=== PATIENT | female | born 1945 | race Caucasian/White ===

== ENCOUNTER → 2021-08-15 11:26 | Outpatient (CLI) | payer MEDICARE, OTHER, SELFPAY ==
[2021-08-15 14:10] LABS: COVID19 -Nasal RAPID Negative (Negative)
== END ==
PROVIDERS: Visit Provider Nurse Practitioner Family
DX: Z20.822 Contact with and (suspected) exposure to COVID-19 (principal)
CPT/HCPCS: 87635; C9803

== ENCOUNTER → 2021-08-16 10:20 | Outpatient (CLI) | payer MEDICARE, OTHER, SELFPAY ==
--- NOTE | 2021-08-17 05:46 | DI.NM.S_ITS ---
DATE OF SERVICE: PROCEDURE: Pharmacological perfusion study. INDICATIONS: Angina pectoris, shortness of breath, hypertension, hyperlipidemia. RADIOPHARMACEUTICAL: 24.8 millicurie technetium-99m Myoview IV was injected at stress and 12.3 millicurie technetium-99m Myoview IV was injected at rest. CARDIAC STRESS: The patient underwent IV Lexiscan perfusion study under the supervision of an attending staff using standard intravenous Lexiscan as per protocol. The patient remained hemodynamically stable. Baseline rhythm was sinus with poor R-wave progression with sinus bradycardia, rate about 54 beats per minute. During stress, no convincing ischemic changes seen. No new significant arrhythmias seen. No anginal symptoms. RAW DATA: Breast shadow was seen. GATED STUDY: Resting LV ejection fraction is 75 percent and stress LV ejection fraction 88 percent. Resting end-diastolic volume 73 mL. TID ratio 1.0, which is within normal limits. Lung/heart ratio 0.25, which is within normal limits. MYOCARDIAL PERFUSION SCAN: Stress supine, resting supine and stress prone images were compared to each other. Stress supine and resting supine images revealed minimally decreased perfusion of distal anterior septum which got resolved during stress prone images, suggestive of breast tissue attenuation artifact. CONCLUSION: I will call this study a normal myocardial perfusion study with evidence of breast tissue attenuation artifact which got resolved during stress prone images. The stress prone images revealed normal myocardial perfusion. Preserved left ventricular function. No significant sustained arrhythmias. Overall, this is a low-risk myocardial perfusion scan. YARA BARROS - BRANDI/bob/eboni doc#: [id number]/job#: [id number] dd: 08/16/2021 17:42:00 dt: 08/17/2021 05:08:00 DICTATING MD/COPIES TO: Yi Maciel MD COPIES MNE: JOHN;
== END ==
PROVIDERS: Referring Provider Internal Medicine Cardiovascular Disease; Visit Provider Internal Medicine Cardiovascular Disease
DX: I20.8 Other forms of angina pectoris (principal); R06.00 Dyspnea, unspecified; I10 Essential (primary) hypertension; E78.5 Hyperlipidemia, unspecified
CPT/HCPCS: 78452; 93017; A9502; J2785

== ENCOUNTER 2022-05-31 22:55 | Inpatient (IN) | payer MEDICARE, OTHER, SELFPAY ==
[2022-05-31 22:58] VITALS: BP 187/82; PULSE 57; PULSE 58; RESP 16; TEMP 36.6; O2SAT 94; O2SAT 99; BMI 24.7
[2022-05-31 23:00] VITALS: PULSE 58; O2SAT 94
--- NOTE | 2022-05-31 23:00 | DI.RAD.S_ITS ---
PROCEDURE: XR SHOULDER LT MIN 2V INDICATIONS: fall TECHNIQUE: 2 views of the shoulder were acquired. COMPARISON: None. FINDINGS: Bones: There is a mildly comminuted fracture of the left humeral head and neck with mild impaction of the humeral shaft component. No suspicious bony lesions. Visualized ribs appear intact. Soft tissues: No suspicious soft tissue calcifications. IMPRESSION: 1. Mildly comminuted and impacted fracture of the left humeral head and neck. Dictated by: Enrike Blake M.D. on 05/31/2022 at 23:52 Approved by: Enrike Blake M.D. on 05/31/2022 at 23:53
--- NOTE | 2022-05-31 23:01 | DI.RAD.S_ITS ---
PROCEDURE: XR HIP W PEL IF DONE LT 2V INDICATIONS: fall, hip and shoulder pain TECHNIQUE: AP pelvis with lateral view of the left hip. COMPARISON: None. FINDINGS: Bones: There is a mildly displaced intertrochanteric fracture of the proximal left femur. There is associated mild proximal displacement and varus angulation. Pelvic ring appears intact. The physician screws are demonstrated traversing the right femoral neck. No suspicious bony lesions. Soft tissues: The visualized bowel gas pattern is normal. No suspicious soft tissue calcifications. IMPRESSION: 1. Mildly displaced intertrochanteric fracture of the proximal left femur. Dictated by: Enrike Blake M.D. on 05/31/2022 at 23:53 Approved by: Enrike Blake M.D. on 05/31/2022 at 23:54
[2022-05-31 23:30] VITALS: PULSE 59; O2SAT 95
[2022-06-01] VITALS (30 sets, daily range): BP systolic 106–172; BP diastolic 45–89; PULSE 60–86; RESP 12–25; TEMP 35.8–37.6; O2SAT 91–100; BMI 24.7
--- NOTE | 2022-06-01 00:07 | DI.RAD.S_ITS ---
PROCEDURE: XR CHEST 1V INDICATIONS: pre-op TECHNIQUE: One view of the chest was acquired. COMPARISON: [facility], CR, XR SHOULDER LT MIN 2V, 05/31/2022, 23:06. FINDINGS: Surgical changes and devices: None. Lungs and pleura: There is elevation of the left hemidiaphragm. Linear left basilar opacities likely represent atelectasis. Right lung is clear No pleural effusions or pneumothorax. Mediastinum: Mediastinal contours appear normal. Heart size is normal. Bones and chest wall: No suspicious bony lesions. Overlying soft tissues appear unremarkable. IMPRESSION: 1. No definite acute cardiopulmonary disease. 2. Linear left basilar opacities likely represent atelectasis. Dictated by: Enrike Blake M.D. on 06/01/2022 at 1:05 Approved by: Enrike Blake M.D. on 06/01/2022 at 1:06
[2022-06-01] MEDS: MORPHINE 2 MG/ML INJ IV (00:09)
[2022-06-01] MEDS: SODIUM CHLORIDE 0.9% 1,000 ML 150 ML IV (00:15)
--- NOTE | 2022-06-01 00:25 | ED.FALL ---
HPI - Fall General Chief Complaint: Fall Stated Complaint: GLF shoulder and hip pain Time Seen by Provider: 06/01/22 00:06 History of Present Illness HPI Narrative: 76-year-old woman with complex medical history including diabetes, hyperlipidemia, ischemic heart disease, history of seizures none reported in last 10 years, asthma, osteoarthritis, PTSD, depression, anxiety, borderline personality disorder who presents after a mechanical fall at home. Apparently she was with friends and family had just gotten home from [place] her Bible down twisted fell and landed on her left side. She is complaining of left arm pain left hip pain. She was unable to get up off the floor. On initial discussion in the ER she is now beginning to complain of abdominal pain, left flank left lower rib and left lower quadrant abdominal pain. She notes that she has not recently had fevers, cough, chills, chest pain, palpitations. She has been doing well with her chronic usual back pain and feels that she is psychiatrically stable at this time. Related Data Home Medications Medication Instructions Recorded Confirmed fluoxetine 20 mg capsule 2 cap PO DAILY 06/01/22 06/01/22 levetiracetam 500 mg tablet 2 tab PO BID 06/01/22 06/01/22 levothyroxine 50 mcg tablet 50 mcg PO DAILY 06/01/22 06/01/22 levothyroxine 50 mcg tablet tab 06/01/22 nifedipine 60 mg tablet,extended 2 tab PO DAILY 06/01/22 06/01/22 release olanzapine 7.5 mg tablet 2.5 mg PO DAILY 06/01/22 06/01/22 rosuvastatin 20 mg tablet 1 tab PO DAILY 06/01/22 06/01/22 Allergies Allergy/AdvReac Type Severity Reaction Status Date / Time acetaminophen [From Tylox] AdvReac Verified 05/31/22 23:03 aspirin AdvReac Verified 05/31/22 23:03 cefaclor [From Ceclor] AdvReac Verified 05/31/22 23:03 cephalexin [From Keflex] AdvReac Verified 05/31/22 23:03 chlorzoxazone AdvReac Verified 05/31/22 23:03 [From Parafon Forte] clopidogrel [From Plavix] AdvReac Verified 05/31/22 23:03 codeine AdvReac Verified 05/31/22 23:03 hydroxyzine [From Atarax] AdvReac Verified 05/31/22 23:03 liothyronine [From Cytomel] AdvReac Verified 05/31/22 23:03 meperidine [From Demerol] AdvReac Verified 05/31/22 23:03 mirtazapine [From Remeron] AdvReac Verified 05/31/22 23:03 naproxen [From Naprosyn] AdvReac Verified 05/31/22 23:03 oxycodone [From Tylox] AdvReac Verified 05/31/22 23:03 Penicillins AdvReac Verified 05/31/22 23:03 pentazocine [From Talwin] AdvReac Verified 05/31/22 23:03 propoxyphene AdvReac Verified 05/31/22 23:03 [From Darvocet-N] rifampin AdvReac Verified 05/31/22 23:03 Review of Systems Review of Systems Narrative: Remainder of complete review of systems is otherwise unremarkable except for that included in the HPI. Patient History Medical History Androgenic alopecia Anxiety and depression Asthma Borderline personality disorder Chronic GERD Diabetes Epileptic seizures Hyperlipidemia Irritable bowel disease Ischemic heart disease Osteoarthritis Personal history of malignant neoplasm of cervix uteri PTSD (post-traumatic stress disorder) Surgical History H/O adenoidectomy H/O exploratory laparotomy H/O knee surgery History of bilateral tubal ligation History of bladder suspension procedure History of cholecystectomy History of tonsillectomy Previous back surgery S/P removal of parathyroid gland Family History Mother CVA (cerebral vascular accident) Father Myocardial infarct Daughter Lung cancer Sister Ovarian cancer Sister Lymphoma Social History household members: none Smoking Status: Never smoker alcohol intake: never Exam Initial Vital Signs Initial Vital Signs: Vital Signs Temperature 97.8 F 05/31/22 22:58 Pulse Rate 57 L 05/31/22 22:58 Respiratory Rate 16 05/31/22 22:58 Blood Pressure 187/82 H 05/31/22 22:58 Pulse Oximetry 99 05/31/22 22:58 Oxygen Delivery Method 05/31/22 22:58 General: Frail, chronically ill-appearing, in moderate pain able to cooperate with history and exam HEENT: Moist mucous membranes, normal sclera with reactive pupils, Neck: No cervical spine tenderness, supple Respiratory: Lungs are clear to auscultation, no wheezing no rales no rhonchi. Full and symmetrical air movement Chest: No tenderness with AP compression, no subcutaneous air, no abrasions or contusions, mild tenderness left posterior lower rib without contusion or obvious hematoma Cardiac: Regular rate and rhythm no murmurs no bruits Abdomen: Soft, tenderness in left upper quadrant left flank left lower quadrant without rebound or guarding, good bowel tones, Skin: Warm and dry, no rashes Neurologic: Grossly neurologically intact with no obvious asymmetries or abnormalities Extremities: Tenderness to the proximal humerus. Tenderness to the left hip and pelvic ring with hip externally rotated and slightly flex for comfort. Well perfused and neurovascularly intact distally Psych: Cooperative, appropriate insight and affect Course Orders Ordered: ED Orders 05/31/22 23:00 XR shoulder LT min 2V Stat 05/31/22 23:01 XR hip w pel if done LT 2V Stat 06/01/22 00:07 XR chest 1V Stat 06/01/22 00:10 COVID19 -Nasal RAPID/Pre-Proc Stat 06/01/22 00:33 EKG-12 Lead Stat 06/01/22 00:39 CT chest abd pel w con Stat 06/01/22 02:09 Complete Blood Count AUTO DIFF Stat Comprehensive Metabolic Panel Stat 06/01/22 02:33 Consult to Orthopedic Surgery Stat 06/01/22 03:10 Urinalysis and Microscopic Stat Acetaminophen (Acetaminophen 325 Mg Tablet) 650 mg PO Q6HR PRN PRN Reason: Fever/Mild Pain (1-3) Last Admin: 06/01/22 05:09 Dose: 650 mg Documented By: BRITTNY Atorvastatin Calcium (Atorvastatin 20 Mg Tablet) 40 mg PO BEDTIME SARAN Carvedilol (Carvedilol 12.5 Mg Tablet) 50 mg PO DAILY SARAN Docusate Sodium (Docusate 100 Mg Capsule) 100 mg PO BID SARAN Fluoxetine HCl (Fluoxetine 20 Mg Capsule) 40 mg PO DAILY SARAN Hydromorphone HCl (Hydromorphone 0.5 Mg Inj) 0.5 mg IV Q3H PRN PRN Reason: Breakthrough Pain Sodium Chloride (Normal Saline 0.9%) 1,000 mls @ 100 mls/hr IV CONT SARAN Last Admin: 06/01/22 05:02 Dose: 100 mls/hr Documented By: BRITTNY Levetiracetam (Levetiracetam 250 Mg Tablet) 1,000 mg PO BID SARAN Levothyroxine Sodium (Levothyroxine 50 Mcg Tablet) 50 mcg PO 0600 SARAN Morphine Sulfate (Morphine 4 Mg/Ml Inj) 4 mg IV Q3H PRN PRN Reason: Pain, Severe (7-10) Last Admin: 06/01/22 05:09 Dose: 4 mg Documented By: BRITTNY Nifedipine (Nifedipine 30 Mg Tab Er) 120 mg PO DAILY SARAN Olanzapine (Olanzapine 2.5 Mg Tablet) 2.5 mg PO BEDTIME SARAN Ondansetron HCl (Ondansetron 4 Mg/2 Ml Inj) 4 mg IV Q6HR PRN PRN Reason: Nausea And Vomiting Last Admin: 06/01/22 05:09 Dose: 4 mg Documented By: BRITTNY Primidone (Primidone 50 Mg Tablet) 250 mg PO BID SARAN Sennosides (Sennosides 8.6 Mg Tablet) 17.2 mg PO BEDTIME SARAN Discontinued Medications Hydromorphone HCl (Hydromorphone 0.5 Mg Inj) 0.5 mg IV Q15MIN PRN PRN Reason: Pain, Last Admin: 06/01/22 02:30 Dose: 0.5 mg Documented By: Admin: 06/01/22 01:43 Dose: 0.5 mg Documented By: Admin: 06/01/22 01:17 Dose: 0.5 mg Documented By: TANMAY Sodium Chloride (Normal Saline 0.9%) 1,000 mls @ 150 mls/hr IV CONT SARAN Last Infusion: 06/01/22 04:28 Dose: 150 mls/hr Documented By: Admin: 06/01/22 00:15 Dose: 150 mls/hr Documented By: TANMAY Lidocaine HCl (Lidocaine 2% (Glydo) 6 Ml Gel) 6 ml TOP NOW ONE Stop: 06/01/22 00:25 Last Admin: 06/01/22 03:09 Dose: 6 ml Documented By: TANMAY Morphine Sulfate (Morphine 2 Mg/Ml Inj) 2 mg IV NOW ONE Stop: 06/01/22 00:03 Last Admin: 06/01/22 00:09 Dose: 2 mg Documented By: ADK Non-Formulary Medication (Rosuvastatin) 1 tab PO DAILY [facility] Ondansetron HCl (Ondansetron 4 Mg/2 Ml Inj) 4 mg IV NOW ONE Stop: 06/01/22 00:07 Last Admin: 06/01/22 01:31 Dose: 4 mg Documented By: NR Primidone (Primidone 50 Mg Tablet) 25 mg PO BID SARAN Vital Signs Vital signs: Vital Signs - 8 hr 05/31/22 22:58 05/31/22 22:58 05/31/22 22:58 Temperature 97.8 F Pulse Rate 57 L 58 L Respiratory Rate 16 Blood Pressure 187/82 H 187/82 H Pulse Oximetry 99 94 Oxygen Delivery Method Room Air Oxygen Flow Rate 05/31/22 23:00 05/31/22 23:30 06/01/22 00:00 Temperature Pulse Rate 58 L 59 L 61 Respiratory Rate Blood Pressure Pulse Oximetry 94 95 95 Oxygen Delivery Method Oxygen Flow Rate 06/01/22 00:12 06/01/22 00:12 06/01/22 00:30 Temperature Pulse Rate 64 60 Respiratory Rate Blood Pressure 152/67 H Pulse Oximetry 96 95 Oxygen Delivery Method Oxygen Flow Rate 06/01/22 01:00 06/01/22 01:30 06/01/22 01:46 Temperature Pulse Rate 64 73 68 Respiratory Rate Blood Pressure Pulse Oximetry 95 91 92 Oxygen Delivery Method Oxygen Flow Rate 06/01/22 01:46 06/01/22 02:00 06/01/22 02:30 Temperature Pulse Rate 70 70 Respiratory Rate Blood Pressure 126/60 Pulse Oximetry 98 96 Oxygen Delivery Method Oxygen Flow Rate 06/01/22 02:32 06/01/22 02:32 06/01/22 02:55 Temperature Pulse Rate 69 Respiratory Rate Blood Pressure 122/55 L 130/60 Pulse Oximetry 97 Oxygen Delivery Method Oxygen Flow Rate 06/01/22 02:55 06/01/22 03:00 06/01/22 03:00 Temperature Pulse Rate 78 77 Respiratory Rate Blood Pressure 126/59 L Pulse Oximetry 96 97 Oxygen Delivery Method Nasal Cannula Oxygen Flow Rate 3 06/01/22 03:30 Temperature Pulse Rate 74 Respiratory Rate Blood Pressure Pulse Oximetry 97 Oxygen Delivery Method Oxygen Flow Rate MDM - Fall Lab Data Result diagrams: 06/01/22 02:09 06/01/22 02:09 Labs: Lab Results 06/01/22 06/01/22 06/01/22 Range/Units 00:10 02:09 02:09 WBC 11.1 H (4.5-11.0) X10^3/uL RBC 3.21 L (4.0-5.2) X10^6/uL Hgb 10.4 L (12.0-16.0) g/dL Hct 31.2 L (36-46) % MCV 97.2 (80-100) fL MCH 32.6 (26-34) PG MCHC 33.5 (30-36) % RDW 13.7 (11.6-14.8) % Plt Count 136 L (150-400) X10^3/uL Neut % (Auto) 81.8 H (50-75) % Lymph % (Auto) 5.9 L (25-40) % [place] % (Auto) 11.7 (3-14) % Eos % (Auto) 0.2 L (2-4) % Baso % (Auto) 0.4 (0-2) % Neut # (Auto) 9100 H (5033-4447) /uL Lymph # (Auto) 700 L (1081-5741) /uL [place] # (Auto) 1300 H (0-900) /uL Eos # (Auto) 0 (0-450) /uL Baso # (Auto) 0 (0-100) /uL Sodium 141 (137-145) mmol/L Potassium 4.6 (3.4-5.1) mmol/L Chloride 113 H (98-107) mmol/L Carbon Dioxide 20 L (22-32) mmol/L BUN 43 H (7-17) mg/dL Creatinine 0.80 (0.52-1.04) mg/dL Estimated GFR > 60 (>60) mL/min BUN/Creatinine Ratio 53.8 H (6-22) Glucose 118 H (80-110) mg/dL Calcium 8.7 (8.4-10.2) mg/dL Total Bilirubin 0.7 (0.2-1.3) mg/dL AST 602 H (14-36) IU/L ALT 223 H (<35) IU/L Alkaline Phosphatase 134 H (38-126) U/L Total Protein 6.0 L (6.3-8.2) g/dL Albumin 3.4 L (3.5-5.0) g/dL Globulin 2.6 (1.7-4.1) g/dL Albumin/Globulin Ratio 1.3 (1.0-2.8) Urine Color Urine Appearance Urine pH (4.5-8.0) Ur Specific [place] (1.000-1.035) Urine Protein (Negative) Urine Glucose (UA) (Negative) g/dL Urine Ketones (NEGATIVE) Urine Occult Blood (Negative) Urine Nitrate (Negative) Urine Bilirubin (NEGATIVE) Urine Urobilinogen (0.2) E.U./dL Ur Leukocyte Esterase (NEGATIVE) Urine RBC (0-5/HPF) Urine WBC (0-5/HPF) Urine Bacteria (None) Ur Culture Indicated? SARS-CoV-2 (PCR) Negative (Negative) 06/01/22 Range/Units 03:10 WBC (4.5-11.0) X10^3/uL RBC (4.0-5.2) X10^6/uL Hgb (12.0-16.0) g/dL Hct (36-46) % MCV (80-100) fL MCH (26-34) PG MCHC (30-36) % RDW (11.6-14.8) % Plt Count (150-400) X10^3/uL Neut % (Auto) (50-75) % Lymph % (Auto) (25-40) % [place] % (Auto) (3-14) % Eos % (Auto) (2-4) % Baso % (Auto) (0-2) % Neut # (Auto) (4331-1869) /uL Lymph # (Auto) (4712-1595) /uL [place] # (Auto) (0-900) /uL Eos # (Auto) (0-450) /uL Baso # (Auto) (0-100) /uL Sodium (137-145) mmol/L Potassium (3.4-5.1) mmol/L Chloride (98-107) mmol/L Carbon Dioxide (22-32) mmol/L BUN (7-17) mg/dL Creatinine (0.52-1.04) mg/dL Estimated GFR (>60) mL/min BUN/Creatinine Ratio (6-22) Glucose (80-110) mg/dL Calcium (8.4-10.2) mg/dL Total Bilirubin (0.2-1.3) mg/dL AST (14-36) IU/L ALT (<35) IU/L Alkaline Phosphatase (38-126) U/L Total Protein (6.3-8.2) g/dL Albumin (3.5-5.0) g/dL Globulin (1.7-4.1) g/dL Albumin/Globulin Ratio (1.0-2.8) Urine Color Yellow Urine Appearance Clear Urine pH 5.0 (4.5-8.0) Ur Specific [place] 1.015 (1.000-1.035) Urine Protein Trace H (Negative) Urine Glucose (UA) Negative (Negative) g/dL Urine Ketones Negative (NEGATIVE) Urine Occult Blood Negative (Negative) Urine Nitrate Negative (Negative) Urine Bilirubin Negative (NEGATIVE) Urine Urobilinogen 0.2 (0.2) E.U./dL Ur Leukocyte Esterase Negative (NEGATIVE) Urine RBC None seen (0-5/HPF) Urine WBC None seen (0-5/HPF) Urine Bacteria None seen (None) Ur Culture Indicated? Cult not indicated SARS-CoV-2 (PCR) (Negative) Imaging Data Chest x-ray: Radiologist's Impression: MPRESSION:? ? 1.? No definite acute cardiopulmonary disease. ? 2. Linear left basilar opacities likely represent atelectasis. ? ? Dictated by: Enrike Blake M.D. on 06/01/2022 at 1:05 ? ? X-ray left hip and pelvis: Radiologist's Impression: FINDINGS:? ? Bones:? There is a mildly displaced intertrochanteric fracture of the proximal left femur.? There is associated mild proximal displacement and varus angulation.? Pelvic ring appears intact.? The physician screws are demonstrated traversing the right femoral neck. ?No suspicious bony lesions.? ? Soft tissues:? The visualized bowel gas pattern is normal.? No suspicious soft tissue calcifications.? ? ? IMPRESSION:? ? 1. Mildly displaced intertrochanteric fracture of the proximal left femur. ? ? ? Dictated by: Enrike Blake M.D. on 05/31/2022 at 23:53 ? ? X-ray shoulder : Radiologist's Impression: FINDINGS:? ? Bones:? There is a mildly comminuted fracture of the left humeral head and neck with mild impaction of the humeral shaft component.? No suspicious bony lesions.? Visualized ribs appear intact.? ? Soft tissues:? No suspicious soft tissue calcifications.? ? IMPRESSION:? ? 1. Mildly comminuted and impacted fracture of the left humeral head and neck. ? ? Dictated by: Enrike Blake M.D. on 05/31/2022 at 23:52 ? ? CT chest abd pelvis: Radiologist's Impression: Comminuted impacted fracture neck of the left humerus. No significant intra-abdominal pathology secondary to recent fall. Comminuted displaced intratrochanteric fracture of the left femur. Bubba Lin MD ECG Data Interpretation: Sinus rhythm at a rate of 63 Normal intervals, normal axis No acute ischemic changes MDM Narrative Medical decision making narrative: 76-year-old woman with multiple medical problems currently all stable with mechanical fall suffering a left proximal humeral fracture and a left mildly displaced intratrochanteric fracture of the proximal left femur. She is having increased left-sided abdominal posterior ribcage tenderness. Given that this is a modified trauma with [address] scan of the chest abdomen pelvis or is obtained to confirm the absence of any additional trauma or bleeding. Patient will need to be admitted to the medicine service with orthopedic surgical consultation. Reviewed and accepted by Joan Marti, hospitalist and Meagna Nina MD orthopedist Discharge Plan Departure Patient Disposition: Admitted As Inpatient Clinical Impression: Closed fracture of right hip, Fracture of proximal end of humerus, Fall Admit Date/Time: 06/01/22 03:51 Admit Provider: Cherelle Marti
[2022-06-01 00:30] LABS: COVID19 -Nasal RAPID Negative (Negative)
--- NOTE | 2022-06-01 00:39 | DI.CT.S_ITS ---
PROCEDURE: CT CHEST ABD PEL W CON INDICATIONS: fall, abd pain, known hip and shoulder fx, left side TECHNIQUE: After the administration of intravenous contrast, 5 mm thick sections acquired from the lung apices to the symphysis. 2.5 mm thick coronal and sagittal reformats were acquired. Additional 7 mm thick coronal maximum intensity projection (MIP) reformats acquired through the lungs. Optional 10-minute delayed imaging may be performed from the kidneys to the bladder. For radiation dose reduction, the following was used: automated exposure control, adjustment of mA and/or kV according to patient size. COMPARISON: [facility], CR, XR CHEST 1V, 06/01/2022, 0:08. [facility], CR, XR HIP W PEL IF DONE LT 2V, 05/31/2022, 23:06. FINDINGS: Image quality: Excellent. CHEST: Lungs: No pulmonary contusions or lacerations. No acute airspace opacities. No pneumothorax or hemothorax. Central and peripheral airways appear patent and normal in caliber. 3 mm right upper lobe nodule series 3, image 144. 4 mm pleural-based left lower lobe nodule series 3, image 150. Juxta fissural nodule in the left lobe on series 3, image 151 measuring 3 mm no priors are available for comparison. Mediastinum: No mediastinal hematomas. Heart size is enlarged. No pericardial effusion. Thoracic aorta and pulmonary arteries demonstrate normal size and enhancement. No mediastinal or hilar adenopathy. Esophagus is normal in caliber. No hiatal hernia. Chest wall: No rib fractures. No subcutaneous emphysema. No axillary or supraclavicular adenopathy. Thyroid gland is unremarkable. ABDOMEN: Solid organs: Liver is normal in size and enhancement, without lacerations. Gallbladder has been removed. Common bile duct is prominent measuring 1.2 cm. Pancreas enhances normally, without transection. Spleen is normal in size and enhancement, without lacerations. No adrenal hematomas. Both kidneys enhance normally, without hydronephrosis or lacerations. There mildly atrophic. Peritoneum and bowel: No free fluid or air. Unenhanced bowel loops demonstrate normal wall thickness and caliber. Nodes and vessels: No retroperitoneal or mesenteric adenopathy. Aorta and inferior vena cava are normal in size and enhancement. Miscellaneous: No ventral hernias. PELVIS: Genitourinary: Bladder wall thickness is normal. Miscellaneous: No inguinal hernias or adenopathy. Bones: L3-4 fusion is present. No acute vertebral compression fractures. Old appearing T11 vertebral body fracture is present. Left humeral head and neck fracture is present. There is associated effusion and lipohemarthrosis. Hematoma is present within the adjacent deltoid musculature. There is no dislocation at the glenohumeral joint space. Left comminuted intertrochanteric fracture is present without dislocation at the joint space. Right femoral fixation is present. Avulsion of type appearing fracture is present at the posterior most aspect of the left inferior pubic ramus. IMPRESSION: Mildly displaced left humeral head and neck fracture with associated effusion hemarthrosis. Left comminuted intertrochanteric fracture. Prominent common bile duct suspected to be related to post cholecystectomy sequela. No priors are available for comparison. If concern persists further etiologies, recommend correlation to laboratory values. Chronic appearing T11 compression deformity. However, no priors are available for comparison. Recommend correlation to point tenderness and if concern persists for fracture, additional imaging with MRI may be obtained. The above findings are concordant with preliminary report. Dictated by: Breana Oakes M.D. on 06/01/2022 at 7:46 Approved by: Breana Oakes M.D. on 06/01/2022 at 7:54
[2022-06-01] MEDS: HYDROMORPHONE 0.5 MG INJ IV ×4 (01:17→07:58)
[2022-06-01] MEDS: ONDANSETRON 4 MG/2 ML INJ IV ×2 (01:31→05:09)
[2022-06-01 02:26] LABS: Add Manual Diff / Slide Review NO; Basophils Absolute Auto 0 /uL (0-100); Basophils Percent Auto 0.4 % (0-2); Eosinophils Absolute Auto 0 /uL (0-450); Eosinophils Percent Auto 0.2 % (2-4); Hematocrit 31.2 % (36-46); Hemoglobin 10.4 g/dL (12.0-16.0); Lymphocytes Absolute Auto 700 /uL (1100-4500); Lymphocytes Percent Auto 5.9 % (25-40); Mean Corpuscular HGB Conc 33.5 % (30-36); Mean Corpuscular Hemoglobin 32.6 PG (26-34); Mean Corpuscular Volume 97.2 fL (80-100); Monocytes Absolute Auto 1300 /uL (0-900); Monocytes Percent Auto 11.7 % (3-14); Neutrophils Absolute Auto 9100 /uL (1500-7000); Neutrophils Percent Auto 81.8 % (50-75); Platelet Count 136 X10^3/uL (150-400); Red Blood Cell Count 3.21 X10^6/uL (4.0-5.2); Red Cell Distribution Width 13.7 % (11.6-14.8); White Blood Cell Count 11.1 X10^3/uL (4.5-11.0)
[2022-06-01 02:32] LABS: Alanine Aminotransferase 223 IU/L (<35); Albumin 3.4 g/dL (3.5-5.0); Albumin Globulin Ratio 1.3 (1.0-2.8); Alkaline Phosphatase 134 U/L (38-126); Aspartate Aminotransferase 602 IU/L (14-36); BUN Creatinine Ratio 53.8 (6-22); Bilirubin Total 0.7 mg/dL (0.2-1.3); Blood Urea Nitrogen 43 mg/dL (7-17); Calcium 8.7 mg/dL (8.4-10.2); Carbon Dioxide 20 mmol/L (22-32); Chloride 113 mmol/L (98-107); Estimated Glomerular Filt Rate > 60 mL/min (>60); Globulin 2.6 g/dL (1.7-4.1); Glucose 118 mg/dL (80-110); HEMOLYSIS < 15 (0-50); Potassium 4.6 mmol/L (3.4-5.1); Sodium 141 mmol/L (137-145)
[2022-06-01] MEDS: LIDOCAINE 2% (GLYDO) 6 ML GEL TOP (03:09)
[2022-06-01 03:21] LABS: Appearance Urine UA CLEAR; Bilirubin Urine UA NEGATIVE (NEGATIVE); Color Urine UA YELLOW; Glucose Urine UA NEGATIVE (Negative); Ketones Urine UA NEGATIVE (NEGATIVE); Leukocyte Esterase Urine UA NEGATIVE (NEGATIVE); Nitrite Urine UA NEGATIVE (Negative); Occult Blood Urine UA NEGATIVE (Negative); Protein Urine UA TRACE (Negative); Specific Gravity Urine UA 1.015 (1.000-1.035); Urobilinogen Urine UA 0.2 E.U./dL (0.2)
[2022-06-01 03:31] LABS: Bacteria Urine None Seen; Culture Indicated Urine Cult Not Indicated; RBC Urine None Seen (0-5/HPF); WBC Urine None Seen (0-5/HPF)
--- NOTE | 2022-06-01 04:09 | P.HP_ITS ---
History of Present Illness History of Present Illness Date Patient Seen: 06/01/22 Time Patient Seen: 03:30 Chief complaint: GLF shoulder and hip pain Narrative: Ariane Medina is a 76 y.o. females with multiple medical problems including a seizure disorder, CAD, ischemic heart disease, hyperlipidemia, diet controlled diabetes was being dropped off by her son to her apartment after [employer], when she placed her Bible on a chair and apparently fell sustaining a fracture to her left upper arm and left hip. Apparently the day before she had just been released from having to wear a walking boot due to an ankle fracture she had sustained and had been wearing for 2 months. She states she is a little clumsy. She denies losing consciousness but did endorse having nausea without vomiting. She has a seizure disorder and up until last month had been free of seizures for 11 years and had 1 seizure during the month of March. She denies shortness of breath, chest pain, abdominal pain, dysuria, or diarrhea. She states she has chronic constipation. She now has pain in her left upper arm and left hip. X-ray of the left shoulder report indicates There is a mildly comminuted fracture of the left humeral head and neck with mild impaction of the humeral shaft component. X-ray of the hip and pelvis indicated ?Mildly displaced intertrochanteric fracture of the proximal left femur. She is afebrile, blood pressure is 126/59, heart rate 75, respiratory rate 16, oxygen saturation of 92% on 3 L, she weighs 63.5 kg with a BMI of 25. She has a mildly elevated white count of 11.1 hemoglobin and hematocrit are 10.4 and 31.2, platelet count 136, she has a mild left shift of 9100, chlorides 113 bicarb 20 BUN 43 she has a normal GFR glucose is 118 AST is 602 ALT is 223 alk-phos is 134 albumin is 3.4 UA is negative for a UTI and COVID-19 PCR is negative. Patient History Medical History Androgenic alopecia Anxiety and depression Asthma Borderline personality disorder Chronic GERD Diabetes Epileptic seizures Hyperlipidemia Irritable bowel disease Ischemic heart disease Osteoarthritis Personal history of malignant neoplasm of cervix uteri PTSD (post-traumatic stress disorder) Surgical History H/O adenoidectomy H/O exploratory laparotomy H/O knee surgery History of bilateral tubal ligation History of bladder suspension procedure History of cholecystectomy History of tonsillectomy Previous back surgery S/P removal of parathyroid gland Family & Social History Family History Mother CVA (cerebral vascular accident) Father Myocardial infarct Daughter Lung cancer Sister Ovarian cancer Sister Lymphoma Safety & Behavioral: Feels Safe in Current Yes Environment Been Physically Hurt or No Threatened By a Person Tobacco & Substance use: She denies a history of smoking or alcohol use. Meds Home Medications and Allergies Home Medications Medication Instructions Recorded Confirmed Type fluoxetine 20 mg capsule 2 cap PO DAILY 06/01/22 06/01/22 History levetiracetam 500 mg tablet 2 tab PO BID 06/01/22 06/01/22 History levothyroxine 50 mcg tablet 50 mcg PO DAILY 06/01/22 06/01/22 History levothyroxine 50 mcg tablet tab 06/01/22 History nifedipine 60 mg tablet,extended 2 tab PO DAILY 06/01/22 06/01/22 History release olanzapine 7.5 mg tablet 2.5 mg PO DAILY 06/01/22 06/01/22 History rosuvastatin 20 mg tablet 1 tab PO DAILY 06/01/22 06/01/22 History Allergies Allergy/AdvReac Type Severity Reaction Status Date / Time acetaminophen [From Tylox] AdvReac Verified 05/31/22 23:03 aspirin AdvReac Verified 05/31/22 23:03 cefaclor [From Ceclor] AdvReac Verified 05/31/22 23:03 cephalexin [From Keflex] AdvReac Verified 05/31/22 23:03 chlorzoxazone AdvReac Verified 05/31/22 23:03 [From Parafon Forte] clopidogrel [From Plavix] AdvReac Verified 05/31/22 23:03 codeine AdvReac Verified 05/31/22 23:03 hydroxyzine [From Atarax] AdvReac Verified 05/31/22 23:03 liothyronine [From Cytomel] AdvReac Verified 05/31/22 23:03 meperidine [From Demerol] AdvReac Verified 05/31/22 23:03 mirtazapine [From Remeron] AdvReac Verified 05/31/22 23:03 naproxen [From Naprosyn] AdvReac Verified 05/31/22 23:03 oxycodone [From Tylox] AdvReac Verified 05/31/22 23:03 Penicillins AdvReac Verified 05/31/22 23:03 pentazocine [From Talwin] AdvReac Verified 05/31/22 23:03 propoxyphene AdvReac Verified 05/31/22 23:03 [From Darvocet-N] rifampin AdvReac Verified 05/31/22 23:03 Review of Systems Review of Systems ROS: Yes All systems reviewed with the patient and are negative except as otherwise documented Exam Vital Signs (past 8 hours): - 05/31/22 22:58 05/31/22 22:58 05/31/22 22:58 Temperature 97.8 F Pulse Rate 57 L 58 L Respiratory Rate 16 Blood Pressure 187/82 H 187/82 H Pulse Oximetry 99 94 Oxygen Delivery Method Room Air Oxygen Flow Rate 05/31/22 23:00 05/31/22 23:30 06/01/22 00:00 Temperature Pulse Rate 58 L 59 L 61 Respiratory Rate Blood Pressure Pulse Oximetry 94 95 95 Oxygen Delivery Method Oxygen Flow Rate 06/01/22 00:12 06/01/22 00:12 06/01/22 00:30 Temperature Pulse Rate 64 60 Respiratory Rate Blood Pressure 152/67 H Pulse Oximetry 96 95 Oxygen Delivery Method Oxygen Flow Rate 06/01/22 01:00 06/01/22 01:30 06/01/22 01:46 Temperature Pulse Rate 64 73 68 Respiratory Rate Blood Pressure Pulse Oximetry 95 91 92 Oxygen Delivery Method Oxygen Flow Rate 06/01/22 01:46 06/01/22 02:00 06/01/22 02:30 Temperature Pulse Rate 70 70 Respiratory Rate Blood Pressure 126/60 Pulse Oximetry 98 96 Oxygen Delivery Method Oxygen Flow Rate 06/01/22 02:32 06/01/22 02:32 06/01/22 02:55 Temperature Pulse Rate 69 Respiratory Rate Blood Pressure 122/55 L 130/60 Pulse Oximetry 97 Oxygen Delivery Method Oxygen Flow Rate 06/01/22 02:55 06/01/22 03:00 06/01/22 03:00 Temperature Pulse Rate 78 77 Respiratory Rate Blood Pressure 126/59 L Pulse Oximetry 96 97 Oxygen Delivery Method Nasal Cannula Oxygen Flow Rate 3 Oxygen Delivery Method Nasal Cannula Oxygen Flow Rate 3 Narrative Exam Narrative: Gen: Alert, oriented, well-nourished but chronically ill appearing, 76 y.o. female, lethargic HEENT: normocephalic, atraumatic, conjunctiva clear, sclera non-icteric, oral mucosa pink and moist Neck: supple, full ROM, no JVD, trachea is midline Resp: Lungs CTA, non-labored breathing CV: RRR, no murmur or rubs Abd: soft, non-tender, normoactive BTs Skin: alopecia, no lesions or rashes, dry and intact Neuro: Alert and oriented X 4 w/no focal deficits. Speech clear and coherent. Extremities: left side pain w/movement, is normally ambulatory, negative Malissa's sign Psyche: normal mood and affect. Objective Labs Result Diagrams: 06/01/22 02:09 06/01/22 02:09 Labs: Laboratory Results - last 24 hr 06/01/22 06/01/22 06/01/22 00:10 02:09 02:09 WBC 11.1 H RBC 3.21 L Hgb 10.4 L Hct 31.2 L MCV 97.2 MCH 32.6 MCHC 33.5 RDW 13.7 Plt Count 136 L Neut % (Auto) 81.8 H Lymph % (Auto) 5.9 L [place] % (Auto) 11.7 Eos % (Auto) 0.2 L Baso % (Auto) 0.4 Neut # (Auto) 9100 H Lymph # (Auto) 700 L [place] # (Auto) 1300 H Eos # (Auto) 0 Baso # (Auto) 0 Sodium 141 Potassium 4.6 Chloride 113 H Carbon Dioxide 20 L BUN 43 H Creatinine 0.80 Estimated GFR > 60 BUN/Creatinine Ratio 53.8 H Glucose 118 H Calcium 8.7 Total Bilirubin 0.7 AST 602 H ALT 223 H Alkaline Phosphatase 134 H Total Protein 6.0 L Albumin 3.4 L Globulin 2.6 Albumin/Globulin Ratio 1.3 Urine Color Urine Appearance Urine pH Ur Specific [place] Urine Protein Urine Glucose (UA) Urine Ketones Urine Occult Blood Urine Nitrate Urine Bilirubin Urine Urobilinogen Ur Leukocyte Esterase Urine RBC Urine WBC Urine Bacteria Ur Culture Indicated? SARS-CoV-2 (PCR) Negative 06/01/22 03:10 WBC RBC Hgb Hct MCV MCH MCHC RDW Plt Count Neut % (Auto) Lymph % (Auto) [place] % (Auto) Eos % (Auto) Baso % (Auto) Neut # (Auto) Lymph # (Auto) [place] # (Auto) Eos # (Auto) Baso # (Auto) Sodium Potassium Chloride Carbon Dioxide BUN Creatinine Estimated GFR BUN/Creatinine Ratio Glucose Calcium Total Bilirubin AST ALT Alkaline Phosphatase Total Protein Albumin Globulin Albumin/Globulin Ratio Urine Color Yellow Urine Appearance Clear Urine pH 5.0 Ur Specific [place] 1.015 Urine Protein Trace H Urine Glucose (UA) Negative Urine Ketones Negative Urine Occult Blood Negative Urine Nitrate Negative Urine Bilirubin Negative Urine Urobilinogen 0.2 Ur Leukocyte Esterase Negative Urine RBC None seen Urine WBC None seen Urine Bacteria None seen Ur Culture Indicated? Cult not indicated SARS-CoV-2 (PCR) Assessment & Plan Assessment & Plan narrative: Ariane Mednia is admitted for treatment of a left intertrochanteric femur fracture and a left distal humeral fracture. Mildly displaced Left inter trochanteric fracture, acute, present on admission * Dr. Meagan Nina has been contacted and will see the patient and plans to take her into the OR today * IV morphine and IV Dilaudid for pain control * type and screen Displaced proximal humeral fracture * considered to be non operative and patient will wear a sling Elevated liver enzymes, unknown if chronic or acute * I have ordered an acute hepatitis panel and daily liver enzymes * may be medication related Coronary artery disease, chronic * continue home dose of carvedilol 25 mg 2 tablets twice daily, and nifedipine 60 mg 2 tabs p.o. daily Seizure disorder * continue home dose of Keppra 1000 mg p.o. b.i.d., primidone 250 mg p.o. b.i.d. and olanzapine 2.5 mg at bedtime Dyslipidemia, chronic * she normally takes rosuvastatin 20 mg and I have substituted with atorvastatin 40 mg at bedtime Hypothyroidism, chronic * continue home dose of levothyroxine 50 mcg once daily VTE Prophylaxis: Wells risk score 1.5 pharmacological VTE prophylaxis contraindicated in setting of upcoming surgery X Bilateral SCDs Patient is admitted to the inpatient service due to the severity of disease, risks of further disease progression and this stay is expected to exceed 2 midnights. FEN: IV fluids: NS at 100 ml/hour, diet: NPO except meds, labs: CBC, C/BMP, liver enzymes, Mag, PT/INR Consultants Dr. Meagan Nina, care and involvement in the patient's care is ap preciated. Dispo: likely rehab Code status: DNR/DNI as discussed with the patient who identifies her son as her surrogate and POA. [X] I have utilized all available immediate resources to obtain, update, or review of the patient's current medications COVID-19 COVID-19 status: Negative Result date/Date tested (Pos, Neg/Pending): 06/01/22 Time Spent With Patient Critical Care time: I spent a total of [] minutes of critical care time on this patient's care today; this time is exclusive of procedural time. Scores Wells' Criteria for PE Clinical signs and symptoms of DVT: No PE is #1 Dx or equally likely: No Heart rate > 100: No Immobilization at least 3 days or surg in previous 4 weeks: Yes History of PE or DVT: No Hemoptysis: No Malignancy w/Treatment within 6 months or palliative: No Wells' PE Score total: 1.5 Quality VTE Deep Vein Thrombosis/Pulmonary Embolism Present on Admission: No MIPS - Admit I confirm the patient?s Advance Care Plan is present, Code status is documented, Surrogate decision maker is in patient?s record [If Yes, STOP here]: Yes MIPS - DC The patient has current or prior documentation of left ventricular ejection fraction (LVEF) less than 40%, or moderate or severely depressed left ventricular systolic function.: No
[2022-06-01] MEDS: SODIUM CHLORIDE 0.9% 1,000 ML 100 ML IV ×2 (05:02→08:05)
[2022-06-01] MEDS: MORPHINE 4 MG/ML INJ IV (05:09)
[2022-06-01] MEDS: ACETAMINOPHEN 325 MG TABLET 650 MG PO ×3 (05:09→23:25)
--- NOTE | 2022-06-01 07:23 | PM.HP.1 ---
History of Present Illness History of Present Illness Date Patient Seen: 06/01/22 Time Patient Seen: 07:24 Date of Onset of Symptoms: 05/31/22 Chief complaint: GLF shoulder and hip pain Narrative: Ms Medina is a 76 year old woman who fell from a standing position last night. She complains of left arm and left leg pain. Medical history including borderline diabetes (pt denies use of medication), hyperlipidemia, ischemic heart disease, history of seizures none reported in last 10 years, asthma, osteoarthritis, PTSD, depression, anxiety, borderline personality disorder.? Patient History Medical History Androgenic alopecia Anxiety and depression Asthma Borderline personality disorder Chronic GERD Diabetes Epileptic seizures Hyperlipidemia Irritable bowel disease Ischemic heart disease Osteoarthritis Personal history of malignant neoplasm of cervix uteri PTSD (post-traumatic stress disorder) Surgical History H/O adenoidectomy H/O exploratory laparotomy H/O knee surgery History of bilateral tubal ligation History of bladder suspension procedure History of cholecystectomy History of tonsillectomy Previous back surgery S/P removal of parathyroid gland Family & Social History Family History Mother CVA (cerebral vascular accident) Father Myocardial infarct Daughter Lung cancer Sister Ovarian cancer Sister Lymphoma Social History: household members none Prior Living Arrangements Apartment/Condo Safety & Behavioral: Feels Safe in Current Yes Environment Been Physically Hurt or No Threatened By a Person Tobacco & Substance use: Smoking Status Never smoker alcohol intake never Substance Use Type does not use Meds Home Medications and Allergies Home Medications Medication Instructions Recorded Confirmed Type fluoxetine 20 mg capsule 2 cap PO DAILY 06/01/22 06/01/22 History levetiracetam 500 mg tablet 2 tab PO BID 06/01/22 06/01/22 History levothyroxine 50 mcg tablet 50 mcg PO DAILY 06/01/22 06/01/22 History levothyroxine 50 mcg tablet tab 06/01/22 History nifedipine 60 mg tablet,extended 2 tab PO DAILY 06/01/22 06/01/22 History release olanzapine 7.5 mg tablet 2.5 mg PO DAILY 06/01/22 06/01/22 History rosuvastatin 20 mg tablet 1 tab PO DAILY 06/01/22 06/01/22 History Allergies Allergy/AdvReac Type Severity Reaction Status Date / Time acetaminophen [From Tylox] AdvReac Verified 05/31/22 23:03 aspirin AdvReac Verified 05/31/22 23:03 cefaclor [From Ceclor] AdvReac Verified 05/31/22 23:03 cephalexin [From Keflex] AdvReac Verified 05/31/22 23:03 chlorzoxazone AdvReac Verified 05/31/22 23:03 [From Parafon Forte] clopidogrel [From Plavix] AdvReac Verified 05/31/22 23:03 codeine AdvReac Verified 05/31/22 23:03 hydroxyzine [From Atarax] AdvReac Verified 05/31/22 23:03 liothyronine [From Cytomel] AdvReac Verified 05/31/22 23:03 meperidine [From Demerol] AdvReac Verified 05/31/22 23:03 mirtazapine [From Remeron] AdvReac Verified 05/31/22 23:03 naproxen [From Naprosyn] AdvReac Verified 05/31/22 23:03 oxycodone [From Tylox] AdvReac Verified 05/31/22 23:03 Penicillins AdvReac Verified 05/31/22 23:03 pentazocine [From Talwin] AdvReac Verified 05/31/22 23:03 propoxyphene AdvReac Verified 05/31/22 23:03 [From Darvocet-N] rifampin AdvReac Verified 05/31/22 23:03 Review of Systems Review of Systems ROS: Yes All systems reviewed with the patient and are negative except as otherwise documented Exam Vital Signs (past 8 hours): - 05/31/22 23:30 06/01/22 00:00 06/01/22 00:12 Temperature Pulse Rate 59 L 61 Respiratory Rate Blood Pressure 152/67 H Pulse Oximetry 95 95 Oxygen Delivery Method Oxygen Flow Rate 06/01/22 00:12 06/01/22 00:30 06/01/22 01:00 Temperature Pulse Rate 64 60 64 Respiratory Rate Blood Pressure Pulse Oximetry 96 95 95 Oxygen Delivery Method Oxygen Flow Rate 06/01/22 01:30 06/01/22 01:46 06/01/22 01:46 Temperature Pulse Rate 73 68 Respiratory Rate Blood Pressure 126/60 Pulse Oximetry 91 92 Oxygen Delivery Method Oxygen Flow Rate 06/01/22 02:00 06/01/22 02:30 06/01/22 02:32 Temperature Pulse Rate 70 70 Respiratory Rate Blood Pressure 122/55 L Pulse Oximetry 98 96 Oxygen Delivery Method Oxygen Flow Rate 06/01/22 02:32 06/01/22 02:55 06/01/22 02:55 Temperature Pulse Rate 69 78 Respiratory Rate Blood Pressure 130/60 Pulse Oximetry 97 96 Oxygen Delivery Method Oxygen Flow Rate 06/01/22 03:00 06/01/22 03:00 06/01/22 03:30 Temperature Pulse Rate 77 74 Respiratory Rate Blood Pressure 126/59 L Pulse Oximetry 97 97 Oxygen Delivery Method Nasal Cannula Oxygen Flow Rate 3 06/01/22 04:00 06/01/22 04:55 06/01/22 05:35 Temperature 97.9 F Pulse Rate 75 68 Respiratory Rate 18 Blood Pressure 134/78 Pulse Oximetry 92 92 92 Oxygen Delivery Method Nasal Cannula Oxygen Flow Rate 1 1 Oxygen Delivery Method Nasal Cannula Oxygen Flow Rate 1 Narrative Exam Narrative: Full ROM of left fingers and wrist. Elbow flexed at about 90 degrees, pt does not move elbow or shoulder d/t pain. Denies pain to palpation throughout fingers, hand, forearm. Swelling at shoulder and proximal arm. Left leg PF, DF, EHL intact. Unable to extend or flex knee much d/t pain. Sensation to touch intact throughout LLE. Calf soft and compressible. Const General: cooperative and comfortable Nutritional Appearance: thin Orientation: alert, awake and oriented x3 Resp Effort & Inspection: normal respiratory effort and able to speak in complete sentences Auscultation: clear to auscultation bilaterally Cardio Rate: regular rate Rhythm: regular rhythm Psych Appearance: grossly normal Objective Labs Result Diagrams: 06/01/22 02:09 06/01/22 02:09 Labs: Laboratory Results - last 24 hr 06/01/22 06/01/22 06/01/22 00:10 02:09 02:09 WBC 11.1 H RBC 3.21 L Hgb 10.4 L Hct 31.2 L MCV 97.2 MCH 32.6 MCHC 33.5 RDW 13.7 Plt Count 136 L Neut % (Auto) 81.8 H Lymph % (Auto) 5.9 L [place] % (Auto) 11.7 Eos % (Auto) 0.2 L Baso % (Auto) 0.4 Neut # (Auto) 9100 H Lymph # (Auto) 700 L [place] # (Auto) 1300 H Eos # (Auto) 0 Baso # (Auto) 0 Sodium 141 Potassium 4.6 Chloride 113 H Carbon Dioxide 20 L BUN 43 H Creatinine 0.80 Estimated GFR > 60 BUN/Creatinine Ratio 53.8 H Glucose 118 H Calcium 8.7 Total Bilirubin 0.7 AST 602 H ALT 223 H Alkaline Phosphatase 134 H Total Protein 6.0 L Albumin 3.4 L Globulin 2.6 Albumin/Globulin Ratio 1.3 Urine Color Urine Appearance Urine pH Ur Specific [place] Urine Protein Urine Glucose (UA) Urine Ketones Urine Occult Blood Urine Nitrate Urine Bilirubin Urine Urobilinogen Ur Leukocyte Esterase Urine RBC Urine WBC Urine Bacteria Ur Culture Indicated? SARS-CoV-2 (PCR) Negative Blood Type Antibody Screen 06/01/22 06/01/22 03:10 05:35 WBC RBC Hgb Hct MCV MCH MCHC RDW Plt Count Neut % (Auto) Lymph % (Auto) [place] % (Auto) Eos % (Auto) Baso % (Auto) Neut # (Auto) Lymph # (Auto) [place] # (Auto) Eos # (Auto) Baso # (Auto) Sodium Potassium Chloride Carbon Dioxide BUN Creatinine Estimated GFR BUN/Creatinine Ratio Glucose Calcium Total Bilirubin AST ALT Alkaline Phosphatase Total Protein Albumin Globulin Albumin/Globulin Ratio Urine Color Yellow Urine Appearance Clear Urine pH 5.0 Ur Specific [place] 1.015 Urine Protein Trace H Urine Glucose (UA) Negative Urine Ketones Negative Urine Occult Blood Negative Urine Nitrate Negative Urine Bilirubin Negative Urine Urobilinogen 0.2 Ur Leukocyte Esterase Negative Urine RBC None seen Urine WBC None seen Urine Bacteria None seen Ur Culture Indicated? Cult not indicated SARS-CoV-2 (PCR) Blood Type A Positive Antibody Screen Negative Assessment & Plan Assessment and plan (1) Fracture of proximal end of humerus: Status: Acute Plan: Non operative. (2) Fracture of hip, left, closed: Status: Acute Plan: Unipolar arthroplasty by Dr Meagan Nina later today. May have clear liquids until 0800. Time Spent With Patient Critical Care time: I spent a total of [] minutes of critical care time on this patient's care today; this time is exclusive of procedural time. Quality VTE Deep Vein Thrombosis/Pulmonary Embolism Present on Admission: No
--- NOTE | 2022-06-01 13:14 | PC.NURSE ---
Addendum entered by Marialuisa Costello R.N. 06/01/22 18:30: Returned from PACU @ 1820 Alert/Oriented. Denies discomfort at this time Dsg to left hip CDI Dukes cath patent clear yellow urine. IVF infusing via pump as per orders w/o incidence. Stable post op course. Call light w/in each, bed alarm on for pt safety. Continue w/plan of care. Addendum entered by Marialuisa Costello R.N. 06/01/22 15:39: Pt was escorted to OR @ 1330 by OR staff. Original Note: Pt resting at intervals awaiting surgery this afternoon SpO2 96% RA WA. Tele showing NSR per ICU staff Call light w/in reach, bed alarm on for pt safety. Continue w/plan of care.
--- NOTE | 2022-06-01 14:07 | DI.RAD.S_ITS ---
PROCEDURE: XR PELVIS 1-2V INDICATIONS: hip fracture TECHNIQUE: Intra-operative view of the pelvis and hip acquired. COMPARISON: [facility], CR, XR HIP W PEL IF DONE LT 2V, 06/01/2022, 17:23. [facility], CR, XR HIP W PEL IF DONE LT 2V, 05/31/2022, 23:06. FINDINGS: Bones: Intraoperative devices prior to placement of arthroplasty prostheses are in expected positions. No fractures or suspicious bony lesions. 3 partially threaded fixation screws again seen involving the right femoral head neck. Soft tissues: Overlying surgical retractors are present, along with other intraoperative changes. IMPRESSION: Intraoperative device in expected position during placement of left hip arthroplasty. Dictated by: Ar Chi RRMyriam Interpreted: Braeden Herring MD on 06/01/2022 at 16:41 Transcribed by: MELONY on 06/01/2022 at 16:42 Approved by: Braeden Herring M.D. on 06/01/2022 at 17:56
--- NOTE | 2022-06-01 14:08 | P.OP_ITS ---
Operative Date/Time/Diagnoses Date of procedure: 06/01/22 Time of procedure: 15:00 Pre-op diagnosis: left proximal femoral fracture Post-op diagnosis: same Procedure & Clinicians Procedure: Left hip cemented unipolar, ORIF left hip trochanteric fracture greater Same procedure as scheduled: Yes Indications: This is a 76-year-old female who fell and sustained a left femoral proximal comminuted fracture and a left proximal humerus fracture. She is brought the operating room for a left hip unipolar. Procedure alternatives risks benefits and complications were discussed in detail. A unipolar replacement was recommended in order to allow her to be full weight-bearing on the left lower extremity. She did have a somewhat comminuted fracture Her humerus fracture is not displaced and likely will respond to conservative treatment. Surgeon: Meagan Nina [employer] Writer: Pilar Martinez Anesthesia Type: General Operative Notes Findings: Displaced left femur fracture with marked comminution. Comminuted greater trochanter fracture. Fixed with multiple fiber wires, cemented unipolar, Acceptable stability Closure Type: primary Specimen(s): none sent Prosthetic devices, grafts, tissues, transplants, or devices: Nina and Nephew cemented Synergy size 12, 44 mm head, -3 neck, multiple fiber wires Applied: drain(s) Estimated Blood Loss (mL): 250 Blood products transfused: none Procedure in detail: The patient was seen in the pre-operative area, where the patient identified the left hip as the operative site and this was marked with my initials. The patient received pre-operative antibiotics and was taken to the operating room and placed on the operative table in the supine position after satisfactory anesthesia. Her left arm was meticulously positioned at her side and gently padded and then carefully strapped down to her body in order to avoid displacement of the fracture. A manager maritime out was performed. Patient was placed in the lateral decubitus position and all bony prominences were carefully padded and the arms were appropriately position. The left lower extremity was prepared from the ankle to the iliac crest with ChloroPrep in the usual fashion and draped through sterile drapes. The hip was approached through posterolateral approach. Dissection was carried out down through skin and subcutaneous tissues. The fascia was opened. Gelpi retractors were placed. A Charnley retractor was placed. There was severe comminution of the proximal femur. There was a displaced trochanteric fracture. There are multiple fragments off of the neck. There was some instability in the calcar region and significant comminution of the proximal femur. The piriformis was identified and it was tagged and the posterior capsule was carefully released.. The other short external rotators and capsule were carefully stripped from the posterior aspect of the multiple comminuted pieces of femur. They were tagged and carefully retracted. The femoral neck was severely comminuted. The fragments were freed from the ball which was removed from the acetabulum. The head was removed without difficulty. It was carefully sized. The acetabulum was meticulously irrigated with normal saline. There were [mild] changes in the acetabulum. The acetabulum was carefully protected with an E tape. Multiple fragments of bone were removed. The trochanteric region was a free fragment. It was carefully protected while the canal was identified. The canal was opened with a T-handled reamer. The tapered reamers were then used, followed by sequential broaching. The fragments around the proximal broach were position for ultimate reconstruction. A trial head and neck were then placed and the hip relocated and checked for leg length and stability. The patient was stable in the position of sleep, of squatting, and could be put through a range of motion with 45 degrees internal rotation without dislocation. At 90 degrees flexion, internal rotation to 70? was possible before dislocation. This was felt to be satisfactory and the appropriate components were opened, and the trials were removed. The femoral canal was sized and a distal cement restrictor was placed. The bone was meticulously cleaned with pulse lavage. The canal was packed with vaginal packing with epinephrine. Antibiotics cement was mixed and carefully pressurized into the femoral canal. The femoral component was placed without difficulty. A repeat trial reduction showed good range of motion and stability. A drill was used and multiple FiberWires were meticulously will then through the greater trochanter. The greater trochanter fracture fragment was meticulously reduced. Two intraoperative films were taken because of the severely comminuted fracture.. Patient had good range of motion and stability. The final head and neck were placed after carefully irrigating the wound. The trochanter was meticulously reduced and repaired. Acceptable stability in an anatomic reduction of the main fragments of the greater trochanter was achieved. The capsulomuscular flap was then repaired to the greater trochanter using the tag sutures. The short external rotators were repaired with Ethibond. A deep drain was placed and brought out anteriorly. The fascia tobias was closed with interrupted Vicryl. The subcutaneous layer was closed with interrupted 3-0 Vicryl, and the skin with a running 3-0 V-Lock suture and surgical glue. An Aquacel Ag dressing was applied and the patient was taken to recovery having tolerated the procedure well. Complications: none Post-operative Condition: stable Disposition: Acute Care Plan for aftercare: The patient will be maintained on a standard total hip replacement protocol with weight bearing as tolerated and posterior hip precautions. She should avoid active abduction and abduction strengthening exercises because of her comminuted greater trochanter fracture. She can use a sling for her left proximal humerus fracture. The patient will receive Aspirin and sequential compression devices for DVT prophylaxis. The patient will be discharged home when safe for the home environment.
[2022-06-01] MEDS: LACTATED RINGERS 1,000 ML 84 ML IV (14:09)
[2022-06-01] MEDS: VANCOMYCIN 1,000 MG/200 ML PIGGYBACK 200 MG IV (14:27)
--- NOTE | 2022-06-01 14:43 | SUR.HOLD ---
06/01/[id number]-Sqoeyww brought to Preop holding. alert/oriented x4. in good spirits. Dr Nina here, consented patient/marked. vss. iv restarted with 22 g. rt inner upper FA. Rates pain 8/10 to left shoulder and leg. Tolerable at present. pt has tele unit on.cart reviewed. allergies noted. 1430-Dr Yuan here,aware last Beta Jason yesterday am. Pt denies diabetes-states borderline. no blood suger meds noted. 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 Report given. aware no siezure meds today, or BB. Vancomycin started on pump- so far tolerating medication.
--- NOTE | 2022-06-01 14:58 | CM.DANOTE ---
Addendum entered by BRENNAN Hu 06/02/22 14:28: ADD: Spoke w/DIL Coni, reviewed DCP options. Patient and Son Krishna confirm son is DPOA, his spouse Coni attends all dr gann w/patient and manages everything medical. Patient/Family agreeable to [facility] SNF for patient's DCP. Confirmed w/Linette that patient accepted and bed available Sunday. Family agrees to transport. Need COVID PCR updated before DC PASRR updated Plan: DC to [facility] expected Sunday06.05.22, via family transport Patient recently at [facility], has used some MCR days per Linette; Linette will calculate and discuss w/patient and family YULIYA Original Note: Initial DCP Assessment Note Pt is a 76 yo female, resident of [place], presents after GLF at home and subsequent hip fx, Unipolar arthroplasty by Dr Meagan Nina today. Complicated medical hx includes: diabetes, hyperlipidemia, ischemic heart disease, history of seizures none reported in last 10 years, asthma, osteoarthritis, PTSD, depression, anxiety, borderline personality disorder PCP: Unknown Payer: MCR Attempted assessment and patient had left for the OR. Therapies pending s/p unipolar arthoplasty Following closely for coordination of DCP; home w/family and HH vs SNF BRENNAN Godfrey Discharge Planning/Care Management CM Discharge Assessment Start: 06/01/22 14:52 Freq: Status: Active Protocol: Document 06/01/22 14:52 YULIYA (Rec: 06/01/22 14:58 [email or web address] [id number]) Discharge Planning Assessment Assigned Credentialer BRNENAN Doll DPOA/Assigned Designee Name Coni Medina dtr [phone] JORDAN Tomas [phone] Advance Directives? Yes Advance Directives on File No History Provided By Medical Record Prior Living Arrangements Apartment/Condo Household Members none Independent with ADL's Yes Is patient alert and oriented? Yes Needs Assistance With Home Chores / Shopping Barriers to Discharge Yes Comment s/p Left hip unipolar by Dr Nina home w/family and HH vs SNF
[2022-06-01] MEDS: CLINDAMYCIN 900 MG/50 ML PIGGYBACK 50 MG IV (15:00)
[2022-06-01] MEDS: TRANEXAMIC ACID 1,000 MG in SODIUM CHLORIDE 0.9% 100 ML 200 MG IV ×2 (15:00→16:35)
--- NOTE | 2022-06-01 15:28 | SUR.OPER ---
Lateral on padded OR bed. Gel axillary roll. Arms secured on padded armboard with pillow supporting top arm. Padded hip positioner braces x4 - anterior and posterior chest and pelvis. Additional gel pad used anterior pelvis. Gel pad under bottom leg from knee to foot and secured with tape over sheet.
[2022-06-01] MEDS: SODIUM CHLORIDE IRRIG SOLUTION 250 ML, EPINEPHrine 1 MG IRR (16:10)
[2022-06-01] MEDS: BUPIVACAINE 0.25% (PF) 60 ML, EPINEPHrine 0.3 MG INJ (16:58)
[2022-06-01] MEDS: SODIUM CHLORIDE IRRIG SOLUTION 250 ML, POVIDONE-IODINE SPONGE STICKS 1 APPLIC IRR (16:58)
[2022-06-01] MEDS: BUPIVACAINE LIPOSOME 266 MG/20 ML VIAL INJ (16:58)
--- NOTE | 2022-06-01 17:30 | DI.RAD.S_ITS ---
PROCEDURE: XR HIP W PEL IF DONE LT 2V INDICATIONS: POST OP LEFT HIP FX. UNIPOLAR TECHNIQUE: AP pelvis and lateral view of the left hip acquired. COMPARISON: [facility], CR, XR PELVIS 1-2V, 06/01/2022, 15:49. [facility], CR, XR HIP W PEL IF DONE LT 2V, 05/31/2022, 23:06. FINDINGS: Bones: Patient is status post left hip arthroplasty, with hardware components in expected positions. The hip joint appears congruent. The visualized bony structures appear intact. There are 3 surgical screws in the right femoral neck. Soft tissues: Overlying postoperative changes are noted. No suspicious soft tissue densities. IMPRESSION: Expected postsurgical changes. Dictated by: Noman Llanes M.D. on 06/02/2022 at 12:27 Approved by: Noman Llanes M.D. on 06/02/2022 at 12:28
[2022-06-01] MEDS: HYDROMORPHONE 2 MG TABLET PO ×2 (21:07→23:26)
[2022-06-01] MEDS: DOCUSATE 100 MG CAPSULE PO (21:08)
[2022-06-02] VITALS (8 sets, daily range): BP systolic 105–121; BP diastolic 38–50; PULSE 64–70; RESP 16–18; TEMP 36.5–37; O2SAT 93–97
[2022-06-02] MEDS: VANCOMYCIN 1,000 MG/200 ML PIGGYBACK 200 MG IV (02:41)
[2022-06-02] MEDS: HYDROMORPHONE 2 MG TABLET PO ×6 (03:50→22:23)
[2022-06-02 04:57] LABS: HBsAg Screen Negative (Negative); Hepatitis A Antibody IgM Negative (Negative); Hepatitis B Core Antibody IgM Negative (Negative); Hepatitis C Antibody <0.1 s/co ratio (0.0-0.9)
[2022-06-02 05:36] LABS: Add Manual Diff / Slide Review NO; Basophils Absolute Auto 0 /uL (0-100); Basophils Percent Auto 0.2 % (0-2); Eosinophils Absolute Auto 200 /uL (0-450); Eosinophils Percent Auto 2.3 % (2-4); Lymphocytes Absolute Auto 1600 /uL (1100-4500); Lymphocytes Percent Auto 18.7 % (25-40); Mean Corpuscular HGB Conc 33.9 % (30-36); Mean Corpuscular Hemoglobin 33.2 PG (26-34); Mean Corpuscular Volume 97.8 fL (80-100); Monocytes Absolute Auto 1600 /uL (0-900); Monocytes Percent Auto 19.5 % (3-14); Neutrophils Absolute Auto 5000 /uL (1500-7000); Neutrophils Percent Auto 59.3 % (50-75); Platelet Count 85 X10^3/uL (150-400); Red Blood Cell Count 2.13 X10^6/uL (4.0-5.2); White Blood Cell Count 8.4 X10^3/uL (4.5-11.0)
[2022-06-02 05:39] LABS: Alanine Aminotransferase 457 IU/L (<35); Albumin 2.5 g/dL (3.5-5.0); Albumin Globulin Ratio 1.1 (1.0-2.8); Alkaline Phosphatase 125 U/L (38-126); Aspartate Aminotransferase 548 IU/L (14-36); BUN Creatinine Ratio 29.8 (6-22); Bilirubin Total 0.7 mg/dL (0.2-1.3); Bilirubin Unconjugated 0.4 mg/dL (0.0-1.1); Blood Urea Nitrogen 51 mg/dL (7-17); Calcium 7.4 mg/dL (8.4-10.2); Carbon Dioxide 18 mmol/L (22-32); Chloride 104 mmol/L (98-107); Estimated Glomerular Filt Rate 31 mL/min (>60); Globulin 2.3 g/dL (1.7-4.1); Glucose 113 mg/dL (80-110); HEMOLYSIS < 15 (0-50); Magnesium 1.2 mg/dL (1.6-2.3); Potassium 4.8 mmol/L (3.4-5.1); Total Protein 4.8 g/dL (6.3-8.2)
[2022-06-02 05:52] LABS: Hemoglobin 7.1 g/dL (12.0-16.0)
[2022-06-02 05:57] LABS: Hematocrit 20.8 % (36-46)
[2022-06-02 05:58] LABS: Sodium 129 mmol/L (137-145)
[2022-06-02 06:21] LABS: Thyroid Stimulating Hormone 2.34 uIU/mL (0.47-4.68)
[2022-06-02] MEDS: ACETAMINOPHEN 325 MG TABLET 650 MG PO ×4 (07:08→23:52)
[2022-06-02] MEDS: OLANZapine 2.5 MG TABLET PO (08:47)
[2022-06-02] MEDS: DOCUSATE 100 MG CAPSULE PO ×2 (08:47→20:18)
--- NOTE | 2022-06-02 10:10 | PT.IIE ---
Current Diagnoses Acute posthemorrhagic anemia (06/01/22) Unspecified fracture of upper end of unspecified humerus, initial encounter for closed fracture (06/01/22) Fracture of unspecified part of neck of right femur, initial encounter for closed fracture (06/01/22) Fracture of unspecified part of neck of left femur, initial encounter for closed fracture (06/01/22) Surgery Performed Operation Date: 06/01/22 13:30 Actual Procedures p Unipolar Hip(Left) - Meagan Nina MD Surgical History (Last Reviewed 06/01/22 @ 14:02 by Josselin Lopes, RN) H/O adenoidectomy H/O exploratory laparotomy H/O knee surgery History of bilateral tubal ligation History of bladder suspension procedure History of cholecystectomy History of tonsillectomy Previous back surgery S/P removal of parathyroid gland Medical History (Last Reviewed 06/01/22 @ 14:02 by Josselin Lopes, RN) Androgenic alopecia Anxiety and depression Asthma Borderline personality disorder Chronic GERD Diabetes Epileptic seizures Hyperlipidemia Irritable bowel disease Ischemic heart disease Osteoarthritis Personal history of malignant neoplasm of cervix uteri PTSD (post-traumatic stress disorder) Physical Therapy Inpatient Evaluation/Re-Eval M1 PT/OT-IP Prior Functional Status Start: 06/02/22 11:44 Freq: NEEDED Status: Active Protocol: Document 06/02/22 10:10 AB (Rec: 06/02/22 14:07 AB [id number]) Medical Review Prior Functional Status Medical History Reviewed Yes Communication able to make needs known but needs time to respond to questions Mobility and Gait son in room and gave info: pt with h/o falls ( ~ 4x to date) ; recent L ankle fx (~ 2months ago); pt has been using a FWW but has stopped using a walker ~ 2 weeks ago and able to ambulate without AD; son stated that when pt goes outdoors, he usually is with pt and he provided SBA to cGA without AD Social History Household Members none Living Arrangements Apartment/Condo Number of Floors (Floors) One Floor Number of Stairs To Enter/Railing? no steps to enter Home Environment Standard Height Toilet,Tub/ Shower Home Equipment Front Wheel Walker,Tub Transfer Bench,Hand Held Shower,Grab Bars In Shower M2 PT-IP Current Condition Start: 06/02/22 11:44 Freq: NEEDED Status: Active Protocol: Document 06/02/22 10:10 AB (Rec: 06/02/22 14:07 AB [id number]) Physical Therapy Current Condition Current Condition Evaluation Date 06/02/22 Treatment Diagnosis s/p fall; L hip fx s/p hemiarthroplasty; L humberal fx; diff in walking Onset Date 06/01/22 M3 PT-IP Subjective Start: 06/02/22 11:44 Freq: NEEDED Status: Active Protocol: Document 06/02/22 10:10 AB (Rec: 06/02/22 14:07 AB [id number]) Subjective Physical Therapy Visit Type Type Initial Evaluation Visit Start Time 10:10 Visit Stop Time 11:30 Total Visit Minutes 80 Notes pt with Hgb of 7.1 and Hct of 20.8; Talked with Dr. marie and stated that no intervention for low H&H at this time but ok for PT as long as pt is asymptomatic but stated Ok to hold as well for PT; checked on pt and pt without sling on per ortho MD's order for L UE sling; pt agreed to at least sit up for sling adjustment and management. Number of OIL DISPATCHER Visits 0 Therapy Pain Assessment Pain When Pain Assessed At Rest Pain Present Pain Present Pain Reported Location Left Hip Intensity 9 Scale Used Numeric (0 - 10) Pain Management Techniques Apply Cold,Distraction, Modification of Treatment,Re- positioning,Timing of Activity with Medications Left Shoulder Intensity 9 Scale Used Numeric (0 - 10) Pain Management Techniques Apply Cold,Distraction, Modification of Treatment,Re- positioning,Timing of Activity with Medications M4 PT-IP Mobility and Gait Start: 06/02/22 11:44 Freq: NEEDED Status: Active Protocol: Document 06/02/22 10:10 AB (Rec: 06/02/22 14:07 AB [id number]) PT-Bed Mobility Assessment Supine to Sit Supine to Sit Maximum Assistance,1 Person Assistance,2 Person Assistance ,Head of Bed Elevated Sit to Supine Sit to Supine Maximum Assistance,1 Person Assistance,2 Person Assistance Scooting Scooting to Edge of Bed Maximum Assistance Scooting Up and Down in Bed Maximum Assistance PT-Transfer Assessment Comments Mobility Comments Fitted and provided sling to pt. educated pt and son regarding L hip posterior precautions and also precautions and weight bearing status of LLE and LUE. Pt on O2 and trial off O2 as pt stated that she does not use one at home. BP in supine: 112/41 O2 sat at RA decreases to 88% and O2 put back on and O2 sat increased to 94%. pt completed sit to supine max A x 1-2 and max cues with HOB elevated. Assisted pt with sling management. able to sit on EOB CGA. BP checked in sitting 121/44. pt refused standing. assisted back to bed sit to supine max A x 1-2. max A x 2 for positioning in bed. call light and table placed within reach. PT-Balance Assessment Sitting Balance and Reactions Static Sitting Balance Ability Good Dynamic Sitting Balance Ability Fair Standing Balance and Reactions Device Used n/t M5 PT-IP Objective Assessments Start: 06/02/22 11:44 Freq: NEEDED Status: Active Protocol: Document 06/02/22 10:10 AB (Rec: 06/02/22 14:07 AB [email or web address]) Orientation Orientation/Cognition Level of Alertness Confusional State Orientation Name Language Function Ability Hard of Hearing Safety Awareness Decreased Safety Awareness Memory Description Short Term Impaired Gross Range of Motion Lower Extremity ROM Assessment Within Functional Limits Impairments increase LLE guarding with PROM limiting mobility Strength Lower Extremity Strength Assessment Left Impaired Hip 3-/5 Knee 3+/5 Sensation Assessment Sensation Gross Sensation WNL Muscle Tone Muscle Tone WNL Yes M6 PT-IP Treatment Start: 06/02/22 11:44 Freq: NEEDED Status: Active Protocol: Document 06/02/22 10:10 AB (Rec: 06/02/22 14:07 AB [email or web address]) Physical Therapy Treatment Education Education Provided Precautions,Weight Bearing Status,Post-Op Packet,Safety M7 PT-IP Assessment and Plan Start: 06/02/22 11:44 Freq: NEEDED Status: Active Protocol: Document 06/02/22 10:10 AB (Rec: 06/02/22 14:07 AB [email or web address]) PT Summary Assessment and Plan Potential Rehabilitation Potential Fair Status of Condition at Evaluation Evolving Summary Impairments Pain,ROM,Strength,Balance, Coordination,Sensation,Tone, Cognition,Bed Mobility, Transfers,Gait,Activity Tolerance Assessment Summary pt requiring max A x 1-2 with bed mobility. unable to tolerate much activity due to c/o pain. will continue to assess progress but pt will require SNF rehab. Goals Bed Mobility Goal Minimal Assistance Transfer Goal Minimal Assistance Gait Goal Minimal Assistance,Cane,Marlon Walker Gait Distance 25 Days to Meet Goals 10 Frequency of Treatment Frequency Of Treatment Twice a Day Treatment Plan Physical Therapy Treatment Plan Bed Mobility Training,Transfer Training,Gait Training, Therapeutic Exercise,Balance Retraining,Post Op Education, Discharge Planning,Hot or Cold Pack,Neuromuscular Re-ed, Coordination Retraining,Manual Therapy Precautions Posterior Hip Precautions No Hip Flexion > 90 degrees,No Hip Internal Rotation,No Hip Adduction Shoulder Precautions Sling Other Precautions LLE: No active abduction Weight Bearing Status Weight Bearing Status Weight Bear as Tolerated Allowed Weight Bearing Amount (enter % LLE: WBAT or #) (%) LUE: NWB Recommendations To Nursing Amount of Assist Needed Mechanical Lift Discharge Recommendations PT Discharge Recommendations SNF Rehab Transportation Needs at Discharge Wheelchair/Cabulance
[2022-06-02] MEDS: MAGNESIUM CHLORIDE 64 MG TABLET 128 MG PO ×2 (10:15→17:09)
[2022-06-02] MEDS: MAGNESIUM SULFATE 2 GM/50 ML PIGGYBACK IV (10:41)
--- NOTE | 2022-06-02 11:43 | PM.PNPO.1 ---
Subjective Subjective Date Patient Seen: 06/02/22 Time Patient Seen: 11:44 Interval history: Resting comfortably in bed, c/o LUE pain and inability to move arm. Reminded her that shoulder is fractured and that no surgical intervention is recommended at this time; it will take time to heal. Exam Vital Signs (past 8 hours): - 06/02/22 03:57 06/02/22 08:00 06/02/22 08:15 Temperature 98.5 F 97.7 F Pulse Rate 66 68 Respiratory Rate 17 16 Blood Pressure 109/41 L 110/39 L Pulse Oximetry 97 96 96 Oxygen Delivery Method Nasal Cannula Oxygen Flow Rate 2 2 2 Fraction of Inspired Oxygen 28 Oxygen Delivery Method Nasal Cannula Oxygen Flow Rate 2 Narrative Exam Narrative: DF, PF, EHL intact on left. Sensation to light touch intact throughout leg. Aquacel dressing CDI. Left shoulder swollen, ecchymotic. No AROM at elbow. AROM intact in fingers and wrist, sensation to touch intact throughout arm. Objective Labs Result Diagrams: 06/02/22 05:10 06/02/22 05:10 Labs: Laboratory Results - last 24 hr 06/01/22 06/02/22 06/02/22 05:35 05:10 05:10 WBC RBC Hgb Hct MCV MCH MCHC RDW Plt Count Neut % (Auto) Lymph % (Auto) [place] % (Auto) Eos % (Auto) Baso % (Auto) Neut # (Auto) Lymph # (Auto) [place] # (Auto) Eos # (Auto) Baso # (Auto) Sodium Potassium Chloride Carbon Dioxide BUN Creatinine Estimated GFR BUN/Creatinine Ratio Glucose Calcium Magnesium Total Bilirubin 0.7 Conjugated Bilirubin 0.0 Unconjugated Bilirubin 0.4 AST 548 H ALT 457 H Alkaline Phosphatase 125 Total Protein 4.8 L Albumin 2.5 L Globulin 2.3 Albumin/Globulin Ratio 1.1 TSH 2.34 Hepatitis A IgM Ab Negative Hep Bs Antigen Negative Hep B Core IgM Ab Negative Hepatitis C Antibody <0.1 Hep C Ab Signal/Cutoff Comment 06/02/22 06/02/22 05:10 05:10 WBC 8.4 RBC 2.13 L Hgb 7.1 L Hct 20.8 L* MCV 97.8 MCH 33.2 MCHC 33.9 RDW 14.0 Plt Count 85 L Neut % (Auto) 59.3 D Lymph % (Auto) 18.7 L [place] % (Auto) 19.5 H Eos % (Auto) 2.3 Baso % (Auto) 0.2 Neut # (Auto) 5000 Lymph # (Auto) 1600 [place] # (Auto) 1600 H Eos # (Auto) 200 Baso # (Auto) 0 Sodium 129 L D Potassium 4.8 Chloride 104 Carbon Dioxide 18 L BUN 51 H Creatinine 1.71 H Estimated GFR 31 L BUN/Creatinine Ratio 29.8 H Glucose 113 H Calcium 7.4 L Magnesium 1.2 L Total Bilirubin Conjugated Bilirubin Unconjugated Bilirubin AST ALT Alkaline Phosphatase Total Protein Albumin Globulin Albumin/Globulin Ratio TSH Hepatitis A IgM Ab Hep Bs Antigen Hep B Core IgM Ab Hepatitis C Antibody Hep C Ab Signal/Cutoff [facility] Medical History Androgenic alopecia Anxiety and depression Asthma Borderline personality disorder Chronic GERD Diabetes Epileptic seizures Hyperlipidemia Irritable bowel disease Ischemic heart disease Osteoarthritis Personal history of malignant neoplasm of cervix uteri PTSD (post-traumatic stress disorder) Surgical History H/O adenoidectomy H/O exploratory laparotomy H/O knee surgery History of bilateral tubal ligation History of bladder suspension procedure History of cholecystectomy History of tonsillectomy Previous back surgery S/P removal of parathyroid gland Family History Mother CVA (cerebral vascular accident) Father Myocardial infarct Daughter Lung cancer Sister Ovarian cancer Sister Lymphoma Social History household members: none Smoking Status: Never smoker alcohol intake: never Assessment & Plan Post-op Assessment and plan (1) Closed fracture of right hip: Assessment and Plan narrative: WBAT to LLE w/ posterior hip precautions. She should avoid active abduction and abduction strengthening exercises because of her comminuted greater trochanter fracture.? The patient will receive Aspirin and sequential compression devices for DVT prophylaxis.? (2) Fracture of proximal end of humerus: Assessment and Plan narrative: Sling when OOB. (3) Acute postoperative anemia due to expected blood loss: Assessment and Plan narrative: Appears to be asymptomatic with stable vital signs. Intervention if needed per hospitalist service. Postoperative Procedures: Procedures Operation Date: 06/01/22 13:30 Actual Procedure Side Surgeon p Unipolar Hip Left Meagan Nina MD Postoperative day: 1 Quality VTE Deep Vein Thrombosis/Pulmonary Embolism Present on Admission: No
--- NOTE | 2022-06-02 12:31 | CM.DPNOTE ---
Emailed referral to Trey Chang. Amada Bernstein CM Assist.
--- NOTE | 2022-06-02 15:14 | PT.IPTN ---
Current Diagnoses Acute posthemorrhagic anemia (06/01/22) Unspecified fracture of upper end of unspecified humerus, initial encounter for closed fracture (06/01/22) Fracture of unspecified part of neck of right femur, initial encounter for closed fracture (06/01/22) Fracture of unspecified part of neck of left femur, initial encounter for closed fracture (06/01/22) Surgery Performed Operation Date: 06/01/22 13:30 Actual Procedures p Unipolar Hip(Left) - Meagan Nina MD Physical Therapy Treatment Note M2 PT-IP Current Condition Start: 06/02/22 11:44 Freq: NEEDED Status: Active Protocol: Document 06/02/22 10:10 AB (Rec: 06/02/22 14:07 AB [id number]) Physical Therapy Current Condition Current Condition Evaluation Date 06/02/22 Treatment Diagnosis s/p fall; L hip fx s/p hemiarthroplasty; L humberal fx; diff in walking Onset Date 06/01/22 M3 PT-IP Subjective Start: 06/02/22 11:44 Freq: NEEDED Status: Active Protocol: Document 06/02/22 15:00 KS (Rec: 06/02/22 15:20 KS [id number]) Subjective Physical Therapy Visit Type Type Treatment Note Visit Start Time 15:00 Visit Stop Time 15:14 Total Visit Minutes 14 Notes Pt agreeable but reporting 9/ 10 pain. HAIR DRESSER present for second person assist. Therapy Pain Assessment Pain When Pain Assessed During Mobility Pain Present Pain Present Pain Reported Location Left Hip Intensity 9 Scale Used Numeric (0 - 10) Pain Management Techniques Apply Cold,Distraction, Modification of Treatment,Re- positioning,Timing of Activity with Medications M4 PT-IP Mobility and Gait Start: 06/02/22 11:44 Freq: NEEDED Status: Active Protocol: Document 06/02/22 15:00 KS (Rec: 06/02/22 15:20 KS [id number]) PT-Bed Mobility Assessment Supine to Sit Supine to Sit Maximum Assistance,2 Person Assistance,Head of Bed Elevated Sit to Supine Sit to Supine Maximum Assistance,2 Person Assistance Scooting Scooting to Edge of Bed Maximum Assistance Scooting Up and Down in Bed Maximum Assistance PT-Transfer Assessment Sit to and From Stand Sit to and from Stand Maximum Assistance,2 Person Assistance Comments Mobility Comments Pt in bed upon arrival and agreeable to trial standing. Max A x2 for sup<>sit and scooting EOB. Max A x2 for sit <>stand w/ WBQC. Pt unable to shift weight forward and leaning against bed frame for support. When standing she became nauseated and had to lat back down. Max A x2 for sit<>sup and repositioning in bed. Pt left in bed w/ all needs in reach. Gait Assessment Comments Gait Comments Unable at this time. PT-Balance Assessment Sitting Balance and Reactions Static Sitting Balance Ability Fair Dynamic Sitting Balance Ability Fair Standing Balance and Reactions Static Standing Balance Ability Poor Dynamic Standing Balance Ability Poor Device Used QC M5 PT-IP Objective Assessments Start: 06/02/22 11:44 Freq: NEEDED Status: Active Protocol: Document 06/02/22 10:10 AB (Rec: 06/02/22 14:07 AB [id number]) Orientation Orientation/Cognition Level of Alertness Confusional State Orientation Name Language Function Ability Hard of Hearing Safety Awareness Decreased Safety Awareness Memory Description Short Term Impaired Gross Range of Motion Lower Extremity ROM Assessment Within Functional Limits Impairments increase LLE guarding with PROM limiting mobility Strength Lower Extremity Strength Assessment Left Impaired Hip 3-/5 Knee 3+/5 Sensation Assessment Sensation Gross Sensation WNL Muscle Tone Muscle Tone WNL Yes M6 PT-IP Treatment Start: 06/02/22 11:44 Freq: NEEDED Status: Active Protocol: Document 06/02/22 15:00 KS (Rec: 06/02/22 15:20 KS [id number]) Physical Therapy Treatment Education Education Provided Precautions,Weight Bearing Status,Post-Op Packet,Safety M7 PT-IP Assessment and Plan Start: 06/02/22 11:44 Freq: NEEDED Status: Active Protocol: Document 06/02/22 15:00 KS (Rec: 06/02/22 15:20 KS [id number]) PT Summary Assessment and Plan Potential Rehabilitation Potential Fair Status of Condition at Evaluation Evolving Summary Impairments Pain,ROM,Strength,Balance, Coordination,Sensation,Tone, Cognition,Bed Mobility, Transfers,Gait,Activity Tolerance Assessment Summary Pt continues to require Max Ax2 for bed mobility. Performed sit<>stand Max A x2 w/ QC, but pt leaned against bed frame for support and could not tolerate standing due to pain and nausea. Will progress pt as able but at this time she will require SNF to improve functional mobility. Goals Bed Mobility Goal Minimal Assistance Transfer Goal Minimal Assistance Gait Goal Minimal Assistance,Cane,Marlon Walker Gait Distance 25 Days to Meet Goals 10 Frequency of Treatment Frequency Of Treatment Twice a Day Treatment Plan Physical Therapy Treatment Plan Bed Mobility Training,Transfer Training,Gait Training, Therapeutic Exercise,Balance Retraining,Post Op Education, Discharge Planning,Hot or Cold Pack,Neuromuscular Re-ed, Coordination Retraining,Manual Therapy Precautions Posterior Hip Precautions No Hip Flexion > 90 degrees,No Hip Internal Rotation,No Hip Adduction Shoulder Precautions Sling Other Precautions LLE: No active abduction Weight Bearing Status Weight Bearing Status Weight Bear as Tolerated Allowed Weight Bearing Amount (enter % LLE: WBAT or #) (%) LUE: NWB Recommendations To Nursing Amount of Assist Needed Mechanical Lift Discharge Recommendations PT Discharge Recommendations SNF Rehab Transportation Needs at Discharge Wheelchair/Cabulance
--- NOTE | 2022-06-02 15:41 | P.PN_ITS ---
Subjective Subjective Date Patient Seen: 06/02/22 Interval history: Complains of a moderate amount of pain, worse with movement. A lot in her shoulder and some spasms developing with sharp leg pains when she tries to move. Also anemic, likely post-surgical, but no shortness of breath or chest pain. She does feel slightly weak. Exam Vital Signs (past 8 hours): - 06/02/22 08:00 06/02/22 08:15 Temperature 97.7 F Pulse Rate 68 Respiratory Rate 16 Blood Pressure 110/39 L Pulse Oximetry 96 96 Oxygen Delivery Method Nasal Cannula Oxygen Flow Rate 2 2 Fraction of Inspired Oxygen 28 Oxygen Delivery Method Nasal Cannula Oxygen Flow Rate 2 Narrative Exam Narrative: Gen: Alert, oriented, well-nourished but chronically ill appearing, 76 y.o. female, lethargic HEENT: normocephalic, atraumatic, conjunctiva clear, sclera non-icteric, oral mucosa pink and moist Neck: supple, full ROM, no JVD, trachea is midline Resp: Lungs CTA, non-labored breathing CV: RRR, no murmur or rubs Abd: soft, non-tender, normoactive BTs Neuro: Alert and oriented X 4 w/no focal deficits. Speech clear and coherent. Extremities: no edema or joint effusions. L hip dressing c/d/i. L shoulder in sling. Psyche: normal mood and affect. Objective Labs Result Diagrams: 06/02/22 05:10 06/02/22 05:10 Labs: Laboratory Results - last 24 hr 06/01/22 06/02/22 06/02/22 05:35 05:10 05:10 WBC RBC Hgb Hct MCV MCH MCHC RDW Plt Count Neut % (Auto) Lymph % (Auto) [place] % (Auto) Eos % (Auto) Baso % (Auto) Neut # (Auto) Lymph # (Auto) [place] # (Auto) Eos # (Auto) Baso # (Auto) Sodium Potassium Chloride Carbon Dioxide BUN Creatinine Estimated GFR BUN/Creatinine Ratio Glucose Calcium Magnesium Total Bilirubin 0.7 Conjugated Bilirubin 0.0 Unconjugated Bilirubin 0.4 AST 548 H ALT 457 H Alkaline Phosphatase 125 Total Protein 4.8 L Albumin 2.5 L Globulin 2.3 Albumin/Globulin Ratio 1.1 TSH 2.34 Hepatitis A IgM Ab Negative Hep Bs Antigen Negative Hep B Core IgM Ab Negative Hepatitis C Antibody <0.1 Hep C Ab Signal/Cutoff Comment 06/02/22 06/02/22 05:10 05:10 WBC 8.4 RBC 2.13 L Hgb 7.1 L Hct 20.8 L* MCV 97.8 MCH 33.2 MCHC 33.9 RDW 14.0 Plt Count 85 L Neut % (Auto) 59.3 D Lymph % (Auto) 18.7 L [place] % (Auto) 19.5 H Eos % (Auto) 2.3 Baso % (Auto) 0.2 Neut # (Auto) 5000 Lymph # (Auto) 1600 [place] # (Auto) 1600 H Eos # (Auto) 200 Baso # (Auto) 0 Sodium 129 L D Potassium 4.8 Chloride 104 Carbon Dioxide 18 L BUN 51 H Creatinine 1.71 H Estimated GFR 31 L BUN/Creatinine Ratio 29.8 H Glucose 113 H Calcium 7.4 L Magnesium 1.2 L Total Bilirubin Conjugated Bilirubin Unconjugated Bilirubin AST ALT Alkaline Phosphatase Total Protein Albumin Globulin Albumin/Globulin Ratio TSH Hepatitis A IgM Ab Hep Bs Antigen Hep B Core IgM Ab Hepatitis C Antibody Hep C Ab Signal/Cutoff [facility] Medical History Androgenic alopecia Anxiety and depression Asthma Borderline personality disorder Chronic GERD Diabetes Epileptic seizures Hyperlipidemia Irritable bowel disease Ischemic heart disease Osteoarthritis Personal history of malignant neoplasm of cervix uteri PTSD (post-traumatic stress disorder) Surgical History H/O adenoidectomy H/O exploratory laparotomy H/O knee surgery History of bilateral tubal ligation History of bladder suspension procedure History of cholecystectomy History of tonsillectomy Previous back surgery S/P removal of parathyroid gland Family History Mother CVA (cerebral vascular accident) Father Myocardial infarct Daughter Lung cancer Sister Ovarian cancer Sister Lymphoma Social History household members: none Smoking Status: Never smoker alcohol intake: never Assessment & Plan Assessment & Plan narrative: Mildly displaced Left inter trochanteric fracture, acute, present on admission - now s/p operative intervention with orthopedics on 06/01. - continue pain control - continue PT / OT Displaced proximal humeral fracture considered to be non operative and patient will wear a sling Transaminitis, unknown if chronic or acute - suspect some component of ischemia is most likely to cause this severe of a transaminitis. No bilirubin elevation thus far. No abdominal symptoms currently. - continue to follow, is improving today. GELY - possibly due to same insult that resulted in transaminitis as well. - likely worsened by acute blood loss anemia from surgery. - continue to follow and renally adjust medications as necessary. - continue rudolph for strict urine output for now. Hypomagnesemia - repleted today, continue to follow. Acute blood loss anemia - Hg of 7.2 this AM. Check another this PM, unless overtly symptomatic goal Hg >7. Consider transfusion if similar h/h but worsening renal function. Coronary artery disease, chronic continue home dose of carvedilol 25 mg 2 tablets twice daily, and nifedipine 60 mg 2 tabs p.o. daily Seizure disorder - check a keppra level today given GELY. Have ordered half dose of her home medication so far pending keppra level. Dyslipidemia, chronic - continue statin Hypothyroidism, chronic - continue home levothyroxine Dispo: likely rehab, pending PT/OT and medical stability. Code status: DNR/DNI as discussed with the patient who identifies her son as her surrogate and POA. COVID-19 COVID-19 status: Negative Result date/Date tested (Pos, Neg/Pending): 06/01/22 Time Spent With Patient Critical Care time: I spent a total of [] minutes of critical care time on this patient's care today; this time is exclusive of procedural time. Quality VTE Deep Vein Thrombosis/Pulmonary Embolism Present on Admission: No
[2022-06-02 18:15] LABS: Hematocrit 21.1 % (36-46); Hemoglobin 7.1 g/dL (12.0-16.0)
[2022-06-02 19:17] LABS: BUN Creatinine Ratio 32.6 (6-22); Blood Urea Nitrogen 56 mg/dL (7-17); Calcium 7.6 mg/dL (8.4-10.2); Carbon Dioxide 18 mmol/L (22-32); Chloride 100 mmol/L (98-107); Estimated Glomerular Filt Rate 31 mL/min (>60); Glucose 168 mg/dL (80-110); HEMOLYSIS < 15 (0-50); Potassium 4.2 mmol/L (3.4-5.1); Sodium 129 mmol/L (137-145)
[2022-06-02] MEDS: ATORVASTATIN 20 MG TABLET 10 MG PO (20:18)
[2022-06-02] MEDS: levETIRAcetam 250 MG TABLET 500 MG PO (20:18)
--- NOTE | 2022-06-02 21:01 | PC.NURSE ---
Patient is alert and oriented. Breath sounds CTA but remains on oxygen at 2L/min per [place] with sat of 96%; per previous RN patient has not been able to be weaned from O2 as yet. HRR. Denies nausea. BT present and is passing flatus but has not had BM since 05/30. Indwelling catheter is patent; urine is clear, dark christina. Is unable to move herself in bed so is being repositioned q2h. Wearing sling to left UE; CMS is good with good cap refill and radial pulse. Aquacel dressing to left hip is CDI; CMS intact except patient is unable to lift leg off bed. States pain is 5/10 at rest in both extremities and 9-10/10 with movement; ice packs applied. Agreeable to having bilateral calf SCD's placed. Fall risk score is high and bed alarm is activated. Has order for blood transfusion so currently awaiting lab to do type and screen.
[2022-06-02] MEDS: SODIUM CHLORIDE 0.9% FLUSH 10 ML IV (22:13)
[2022-06-03] VITALS (10 sets, daily range): BP systolic 112–153; BP diastolic 40–81; PULSE 67–74; RESP 15–18; TEMP 36–38; O2SAT 93–98
[2022-06-03] MEDS: SODIUM CHLORIDE 0.9% FLUSH 10 ML IV ×3 (01:14→21:57)
[2022-06-03] MEDS: HYDROMORPHONE 2 MG TABLET PO ×4 (03:56→21:56)
[2022-06-03] MEDS: ACETAMINOPHEN 325 MG TABLET 650 MG PO ×3 (05:25→17:43)
[2022-06-03 06:04] LABS: Alanine Aminotransferase 261 IU/L (<35); Albumin 2.6 g/dL (3.5-5.0); Alkaline Phosphatase 126 U/L (38-126); Aspartate Aminotransferase 149 IU/L (14-36); Bilirubin Total 0.8 mg/dL (0.2-1.3); Bilirubin Unconjugated 0.5 mg/dL (0.0-1.1); Globulin 2.5 g/dL (1.7-4.1); HEMOLYSIS < 15 (0-50); Total Protein 5.1 g/dL (6.3-8.2)
[2022-06-03 06:06] LABS: BUN Creatinine Ratio 39.6 (6-22); Blood Urea Nitrogen 57 mg/dL (7-17); Carbon Dioxide 17 mmol/L (22-32); Chloride 103 mmol/L (98-107); Estimated Glomerular Filt Rate 38 mL/min (>60); Glucose 106 mg/dL (80-110); HEMOLYSIS < 15 (0-50); Magnesium 2.2 mg/dL (1.6-2.3); Potassium 4.2 mmol/L (3.4-5.1); Sodium 129 mmol/L (137-145)
[2022-06-03 06:11] LABS: Add Manual Diff / Slide Review NO; Basophils Absolute Auto 0 /uL (0-100); Basophils Percent Auto 0.1 % (0-2); Eosinophils Absolute Auto 200 /uL (0-450); Eosinophils Percent Auto 1.8 % (2-4); Hematocrit 22.8 % (36-46); Hemoglobin 7.7 g/dL (12.0-16.0); Lymphocytes Absolute Auto 1300 /uL (1100-4500); Lymphocytes Percent Auto 14.5 % (25-40); Mean Corpuscular HGB Conc 33.9 % (30-36); Mean Corpuscular Hemoglobin 30.9 PG (26-34); Mean Corpuscular Volume 91.1 fL (80-100); Monocytes Absolute Auto 1800 /uL (0-900); Monocytes Percent Auto 20.1 % (3-14); Neutrophils Absolute Auto 5700 /uL (1500-7000); Neutrophils Percent Auto 63.5 % (50-75); Platelet Count 83 X10^3/uL (150-400); Red Blood Cell Count 2.51 X10^6/uL (4.0-5.2); Red Cell Distribution Width 18.8 % (11.6-14.8)
[2022-06-03] MEDS: LEVOTHYROXINE 50 MCG TABLET PO (06:27)
[2022-06-03] MEDS: DOCUSATE 100 MG CAPSULE PO ×2 (08:24→21:57)
[2022-06-03] MEDS: OLANZapine 2.5 MG TABLET PO (08:25)
[2022-06-03] MEDS: NIFEdipine 30 MG TAB ER 60 MG PO (08:26)
[2022-06-03] MEDS: FLUoxetine 20 MG CAPSULE 40 MG PO (08:26)
[2022-06-03] MEDS: levETIRAcetam 250 MG TABLET 500 MG PO ×2 (08:26→21:56)
--- NOTE | 2022-06-03 08:38 | P.PN_ITS ---
Subjective Subjective Date Patient Seen: 06/03/22 Time Patient Seen: 08:59 Interval history: Sitting up in bed, eating breakfast. Arm in sling, pt states still painful but more comfortable. Worked w/ PT yesterday. Exam Vital Signs (past 8 hours): - 06/03/22 01:14 06/03/22 01:14 06/03/22 05:08 Temperature 97.9 F 97.9 F 100.4 F H Pulse Rate 72 72 69 Respiratory Rate 15 15 18 Blood Pressure 112/81 112/81 115/41 L Pulse Oximetry 93 95 Oxygen Flow Rate 06/03/22 05:08 06/03/22 05:25 06/03/22 06:24 Temperature 100.4 F H 96.8 F L Pulse Rate Respiratory Rate Blood Pressure Pulse Oximetry Oxygen Flow Rate 2 06/03/22 07:25 Temperature Pulse Rate 67 Respiratory Rate 18 Blood Pressure 117/40 L Pulse Oximetry 98 Oxygen Flow Rate 2 Fraction of Inspired Oxygen 28 Oxygen Delivery Method Nasal Cannula Oxygen Flow Rate 2 Narrative Exam Narrative: 5/5 strength in DF, PF, EHL on left. 3/5 hip flexors, quadriceps, hamstrings. Aquacel dressing CDI. Good ROM of fingers and wrist on left. Objective Labs Result Diagrams: 06/03/22 05:37 06/03/22 05:37 Labs: Laboratory Results - last 24 hr 06/01/22 06/02/22 06/02/22 05:35 17:50 17:50 WBC RBC Hgb 7.1 L Hct 21.1 L MCV MCH MCHC RDW Plt Count Neut % (Auto) Lymph % (Auto) [place] % (Auto) Eos % (Auto) Baso % (Auto) Neut # (Auto) Lymph # (Auto) [place] # (Auto) Eos # (Auto) Baso # (Auto) Sodium 129 L Potassium 4.2 Chloride 100 Carbon Dioxide 18 L BUN 56 H Creatinine 1.72 H Estimated GFR 31 L BUN/Creatinine Ratio 32.6 H Glucose 168 H Calcium 7.6 L Magnesium Total Bilirubin Conjugated Bilirubin Unconjugated Bilirubin AST ALT Alkaline Phosphatase Total Protein Albumin Globulin Albumin/Globulin Ratio Blood Type A Positive Antibody Screen Negative Crossmatch See Detail 06/02/22 06/03/22 06/03/22 21:04 05:37 05:37 WBC 9.0 RBC 2.51 L Hgb 7.7 L Hct 22.8 L MCV 91.1 D MCH 30.9 MCHC 33.9 RDW 18.8 H Plt Count 83 L Neut % (Auto) 63.5 Lymph % (Auto) 14.5 L [place] % (Auto) 20.1 H Eos % (Auto) 1.8 L Baso % (Auto) 0.1 Neut # (Auto) 5700 Lymph # (Auto) 1300 [place] # (Auto) 1800 H Eos # (Auto) 200 Baso # (Auto) 0 Sodium Potassium Chloride Carbon Dioxide BUN Creatinine Estimated GFR BUN/Creatinine Ratio Glucose Calcium Magnesium Total Bilirubin 0.8 Conjugated Bilirubin 0.0 Unconjugated Bilirubin 0.5 AST 149 H ALT 261 H Alkaline Phosphatase 126 Total Protein 5.1 L Albumin 2.6 L Globulin 2.5 Albumin/Globulin Ratio 1.0 Blood Type A Positive Antibody Screen Negative Crossmatch See Detail 06/03/22 05:37 WBC RBC Hgb Hct MCV MCH MCHC RDW Plt Count Neut % (Auto) Lymph % (Auto) [place] % (Auto) Eos % (Auto) Baso % (Auto) Neut # (Auto) Lymph # (Auto) [place] # (Auto) Eos # (Auto) Baso # (Auto) Sodium 129 L Potassium 4.2 Chloride 103 Carbon Dioxide 17 L BUN 57 H Creatinine 1.44 H Estimated GFR 38 L BUN/Creatinine Ratio 39.6 H Glucose 106 Calcium 8.0 L Magnesium 2.2 Total Bilirubin Conjugated Bilirubin Unconjugated Bilirubin AST ALT Alkaline Phosphatase Total Protein Albumin Globulin Albumin/Globulin Ratio Blood Type Antibody Screen Crossmatch [facility] Medical History Androgenic alopecia Anxiety and depression Asthma Borderline personality disorder Chronic GERD Diabetes Epileptic seizures Hyperlipidemia Irritable bowel disease Ischemic heart disease Osteoarthritis Personal history of malignant neoplasm of cervix uteri PTSD (post-traumatic stress disorder) Surgical History H/O adenoidectomy H/O exploratory laparotomy H/O knee surgery History of bilateral tubal ligation History of bladder suspension procedure History of cholecystectomy History of tonsillectomy Previous back surgery S/P removal of parathyroid gland Family History Mother CVA (cerebral vascular accident) Father Myocardial infarct Daughter Lung cancer Sister Ovarian cancer Sister Lymphoma Social History household members: none Smoking Status: Never smoker alcohol intake: never Assessment & Plan Post-op Assessment and plan (1) Closed fracture of right hip: Assessment and Plan narrative: WBAT to LLE w/ posterior hip precautions.? She should avoid active abduction and abduction strengthening exercises because of her comminuted greater trochanter fracture.? The patient states the aspirin causes a rash; will start on Xarelto along with sequential compression devices for DVT prophylaxis. (2) Fracture of proximal end of humerus: Assessment and Plan narrative: Continue sling. (3) Acute postoperative anemia due to expected blood loss: Assessment and Plan narrative: H/H up today. Postoperative Procedures: Procedures Operation Date: 06/01/22 13:30 Actual Procedure Side Surgeon p Unipolar Hip Left Meagan Nina MD Postoperative day: 2 Quality VTE Deep Vein Thrombosis/Pulmonary Embolism Present on Admission: No
--- NOTE | 2022-06-03 09:01 | PM.PN.1 ---
Subjective Subjective Date Patient Seen: 06/03/22 Time Patient Seen: 08:59 Interval history: Mildly confused today per son who is at bedside. Pain is currently well-controlled. Was cleared by ortho to get up to chair today. Exam Vital Signs (past 8 hours): - 06/03/22 01:14 06/03/22 01:14 06/03/22 05:08 Temperature 97.9 F 97.9 F 100.4 F H Pulse Rate 72 72 69 Respiratory Rate 15 15 18 Blood Pressure 112/81 112/81 115/41 L Pulse Oximetry 93 95 Oxygen Flow Rate 06/03/22 05:08 06/03/22 05:25 06/03/22 06:24 Temperature 100.4 F H 96.8 F L Pulse Rate Respiratory Rate Blood Pressure Pulse Oximetry Oxygen Flow Rate 2 06/03/22 07:25 Temperature Pulse Rate 67 Respiratory Rate 18 Blood Pressure 117/40 L Pulse Oximetry 98 Oxygen Flow Rate 2 Fraction of Inspired Oxygen 28 Oxygen Delivery Method Nasal Cannula Oxygen Flow Rate 2 Narrative Exam Narrative: Gen: Alert, not oriented, well-nourished but chronically ill appearing, 76 y.o. female HEENT: normocephalic, atraumatic, conjunctiva clear, sclera non-icteric, oral mucosa pink and moist Neck: supple, full ROM, no JVD, trachea is midline Resp: Lungs CTA, non-labored breathing CV: RRR, no murmur or rubs Abd: soft, non-tender, normoactive BTs Neuro: Alert and oriented X 4 w/no focal deficits. Speech clear and coherent. Extremities: no edema or joint effusions. L hip dressing c/d/i. L shoulder in sling. Psyche: normal mood and affect. Objective Labs Result Diagrams: 06/03/22 05:37 06/03/22 05:37 Labs: Laboratory Results - last 24 hr 06/01/22 06/02/22 06/02/22 05:35 17:50 17:50 WBC RBC Hgb 7.1 L Hct 21.1 L MCV MCH MCHC RDW Plt Count Neut % (Auto) Lymph % (Auto) [place] % (Auto) Eos % (Auto) Baso % (Auto) Neut # (Auto) Lymph # (Auto) [place] # (Auto) Eos # (Auto) Baso # (Auto) Sodium 129 L Potassium 4.2 Chloride 100 Carbon Dioxide 18 L BUN 56 H Creatinine 1.72 H Estimated GFR 31 L BUN/Creatinine Ratio 32.6 H Glucose 168 H Calcium 7.6 L Magnesium Total Bilirubin Conjugated Bilirubin Unconjugated Bilirubin AST ALT Alkaline Phosphatase Total Protein Albumin Globulin Albumin/Globulin Ratio Blood Type A Positive Antibody Screen Negative Crossmatch See Detail 06/02/22 06/03/22 06/03/22 21:04 05:37 05:37 WBC 9.0 RBC 2.51 L Hgb 7.7 L Hct 22.8 L MCV 91.1 D MCH 30.9 MCHC 33.9 RDW 18.8 H Plt Count 83 L Neut % (Auto) 63.5 Lymph % (Auto) 14.5 L [place] % (Auto) 20.1 H Eos % (Auto) 1.8 L Baso % (Auto) 0.1 Neut # (Auto) 5700 Lymph # (Auto) 1300 [place] # (Auto) 1800 H Eos # (Auto) 200 Baso # (Auto) 0 Sodium Potassium Chloride Carbon Dioxide BUN Creatinine Estimated GFR BUN/Creatinine Ratio Glucose Calcium Magnesium Total Bilirubin 0.8 Conjugated Bilirubin 0.0 Unconjugated Bilirubin 0.5 AST 149 H ALT 261 H Alkaline Phosphatase 126 Total Protein 5.1 L Albumin 2.6 L Globulin 2.5 Albumin/Globulin Ratio 1.0 Blood Type A Positive Antibody Screen Negative Crossmatch See Detail 06/03/22 05:37 WBC RBC Hgb Hct MCV MCH MCHC RDW Plt Count Neut % (Auto) Lymph % (Auto) [place] % (Auto) Eos % (Auto) Baso % (Auto) Neut # (Auto) Lymph # (Auto) [place] # (Auto) Eos # (Auto) Baso # (Auto) Sodium 129 L Potassium 4.2 Chloride 103 Carbon Dioxide 17 L BUN 57 H Creatinine 1.44 H Estimated GFR 38 L BUN/Creatinine Ratio 39.6 H Glucose 106 Calcium 8.0 L Magnesium 2.2 Total Bilirubin Conjugated Bilirubin Unconjugated Bilirubin AST ALT Alkaline Phosphatase Total Protein Albumin Globulin Albumin/Globulin Ratio Blood Type Antibody Screen Crossmatch [facility] Medical History Androgenic alopecia Anxiety and depression Asthma Borderline personality disorder Chronic GERD Diabetes Epileptic seizures Hyperlipidemia Irritable bowel disease Ischemic heart disease Osteoarthritis Personal history of malignant neoplasm of cervix uteri PTSD (post-traumatic stress disorder) Surgical History H/O adenoidectomy H/O exploratory laparotomy H/O knee surgery History of bilateral tubal ligation History of bladder suspension procedure History of cholecystectomy History of tonsillectomy Previous back surgery S/P removal of parathyroid gland Family History Mother CVA (cerebral vascular accident) Father Myocardial infarct Daughter Lung cancer Sister Ovarian cancer Sister Lymphoma Social History household members: none Smoking Status: Never smoker alcohol intake: never Assessment & Plan Assessment & Plan narrative: Mildly displaced Left intertrochanteric fracture, acute, present on admission - now s/p operative intervention with orthopedics on 06/01. - continue pain control - continue PT / OT - up to chair today Fever, not present on admission - temp of 100.4F on 06/02 - WBC normal - monitor for repeat fevers and signs of infection Displaced proximal humeral fracture considered to be non operative and patient will wear a sling Transaminitis, unknown if chronic or acute. Improving - suspect some component of ischemia is most likely to cause this severe of a transaminitis. No bilirubin elevation thus far. No abdominal symptoms currently. - continue to follow, continues to improve GELY, improving - possibly due to same insult that resulted in transaminitis as well. - likely worsened by acute blood loss anemia from surgery. - continue to follow and renally adjust medications as necessary. - continue rudolph for strict urine output for now. Hypomagnesemia - monitor and replete Acute blood loss anemia - received 1 unit PRBC on 08/02 for Hgb 7.2 postop - no active signs of bleeding - daily CBC's Coronary artery disease, chronic continue home dose of carvedilol 25 mg 2 tablets twice daily, and nifedipine 60 mg 2 tabs p.o. daily Seizure disorder - keppra level pending - continue home keppra Dyslipidemia, chronic - hold statin due to transaminitis Hypothyroidism, chronic - continue home levothyroxine - TSH 2.34 Dispo: SNF on 06/05, pending PT/OT and medical stability. Code status: DNR/DNI as discussed with the patient who identifies her son Krishna who is her surrogate and POA. COVID-19 COVID-19 status: Negative Result date/Date tested (Pos, Neg/Pending): 06/01/22 Time Spent With Patient Critical Care time: I spent a total of [] minutes of critical care time on this patient's care today; this time is exclusive of procedural time. Quality VTE Deep Vein Thrombosis/Pulmonary Embolism Present on Admission: No
--- NOTE | 2022-06-03 10:37 | PT.IPTN ---
Current Diagnoses Acute posthemorrhagic anemia (06/01/22) Unspecified fracture of upper end of unspecified humerus, initial encounter for closed fracture (06/01/22) Fracture of unspecified part of neck of right femur, initial encounter for closed fracture (06/01/22) Fracture of unspecified part of neck of left femur, initial encounter for closed fracture (06/01/22) Surgery Performed Operation Date: 06/01/22 13:30 Actual Procedures p Unipolar Hip(Left) - Meagan Nina MD Physical Therapy Treatment Note M2 PT-IP Current Condition Start: 06/02/22 11:44 Freq: NEEDED Status: Active Protocol: Document 06/02/22 10:10 AB (Rec: 06/02/22 14:07 AB [email or web address]) Physical Therapy Current Condition Current Condition Evaluation Date 06/02/22 Treatment Diagnosis s/p fall; L hip fx s/p hemiarthroplasty; L humberal fx; diff in walking Onset Date 06/01/22 M3 PT-IP Subjective Start: 06/02/22 11:44 Freq: NEEDED Status: Active Protocol: Document 06/03/22 10:13 KS (Rec: 06/03/22 11:22 KS [id number]) Subjective Physical Therapy Visit Type Type Treatment Note Visit Start Time 10:13 Visit Stop Time 10:37 Total Visit Minutes 24 Notes CLINIC RECEPTIONIST present to assist. Son in room. Therapy Pain Assessment Pain When Pain Assessed During Mobility Pain Present Pain Present Pain Reported M4 PT-IP Mobility and Gait Start: 06/02/22 11:44 Freq: NEEDED Status: Active Protocol: Document 06/03/22 10:13 KS (Rec: 06/03/22 11:22 KS [id number]) PT-Bed Mobility Assessment Supine to Sit Supine to Sit Maximum Assistance,2 Person Assistance,Head of Bed Elevated Sit to Supine Sit to Supine Maximum Assistance,2 Person Assistance Scooting Scooting to Edge of Bed Maximum Assistance Scooting Up and Down in Bed Maximum Assistance PT-Transfer Assessment Sit to and From Stand Sit to and from Stand Maximum Assistance,2 Person Assistance Transfers Transfer Destination Bed Transfer Technique STS Transfer Ability Level of Assist Maximum Assistance,Total Assistance,2 Person Assistance ,Use of Upper Extremities Comments Mobility Comments Pt in bed w/ son in room upon arrival. CLINIC RECEPTIONIST arrived for assistance. Pts BP stable throughout treatment and denies dizziness, nausea, or lightheadedness. Max A x2 for sup<>Sit and scooting EOB. Max A x2 for sit<>Stand w/ QC but pt unable to complete full standing w/ Max A x 2 and leans against bed frame for balance despite cues. Attempted sit<>Stand x3, but no improvement. Pt max A x2 for sit<>sup and repositioning in bed. Gait Assessment Comments Gait Comments Unable at this time. PT-Balance Assessment Sitting Balance and Reactions Static Sitting Balance Ability Fair Dynamic Sitting Balance Ability Fair Standing Balance and Reactions Static Standing Balance Ability Poor Dynamic Standing Balance Ability Poor Device Used QC M5 PT-IP Objective Assessments Start: 06/02/22 11:44 Freq: NEEDED Status: Active Protocol: Document 06/02/22 10:10 AB (Rec: 06/02/22 14:07 AB [email or web address]) Orientation Orientation/Cognition Level of Alertness Confusional State Orientation Name Language Function Ability Hard of Hearing Safety Awareness Decreased Safety Awareness Memory Description Short Term Impaired Gross Range of Motion Lower Extremity ROM Assessment Within Functional Limits Impairments increase LLE guarding with PROM limiting mobility Strength Lower Extremity Strength Assessment Left Impaired Hip 3-/5 Knee 3+/5 Sensation Assessment Sensation Gross Sensation WNL Muscle Tone Muscle Tone WNL Yes M6 PT-IP Treatment Start: 06/02/22 11:44 Freq: NEEDED Status: Active Protocol: Document 06/03/22 10:13 KS (Rec: 06/03/22 11:22 WI [id number]) Physical Therapy Treatment Education Education Provided Precautions,Weight Bearing Status,Post-Op Packet,Safety M7 PT-IP Assessment and Plan Start: 06/02/22 11:44 Freq: NEEDED Status: Active Protocol: Document 06/03/22 10:13 KS (Rec: 06/03/22 11:22 KS [id number]) PT Summary Assessment and Plan Potential Rehabilitation Potential Fair Status of Condition at Evaluation Evolving Summary Impairments Pain,ROM,Strength,Balance, Coordination,Sensation,Tone, Cognition,Bed Mobility, Transfers,Gait,Activity Tolerance Assessment Summary Pt continues to require Max A x2 for bed mobility and sit<> Stand, but unable to perform full stance. Attmepted sit<> stand x3 w/ QC and max A x2 but pt cont. to lean against bed frame and is unable to shift weight forward or fully stand at this time. Will continue to progress, but pt will require SNF to improve functional mobility and strength. Goals Bed Mobility Goal Minimal Assistance Transfer Goal Minimal Assistance Gait Goal Minimal Assistance,Cane,Marlon Walker Gait Distance 25 Days to Meet Goals 10 Frequency of Treatment Frequency Of Treatment Twice a Day Treatment Plan Physical Therapy Treatment Plan Bed Mobility Training,Transfer Training,Gait Training, Therapeutic Exercise,Balance Retraining,Post Op Education, Discharge Planning,Hot or Cold Pack,Neuromuscular Re-ed, Coordination Retraining,Manual Therapy Precautions Posterior Hip Precautions No Hip Flexion > 90 degrees,No Hip Internal Rotation,No Hip Adduction Shoulder Precautions Sling Other Precautions LLE: No active abduction Weight Bearing Status Weight Bearing Status Weight Bear as Tolerated Allowed Weight Bearing Amount (enter % LLE: WBAT or #) (%) LUE: NWB Recommendations To Nursing Amount of Assist Needed Mechanical Lift Discharge Recommendations PT Discharge Recommendations SNF Rehab Transportation Needs at Discharge Wheelchair/Cabulance
--- NOTE | 2022-06-03 14:13 | CM.DPNOTE ---
Discharge Planning note: Met with patient and son in room. Patient weak, tired, c/o of migraine. Max assist with movement. Up in chair this afternoon. Set for admission to [facility] on Sunday, 06/05. Family to transport, need Covid swab before discharge. P: Follow closely and prepare for dc on 06/05. SAGAR
--- NOTE | 2022-06-03 15:02 | PT.IPTN ---
Current Diagnoses Acute posthemorrhagic anemia (06/01/22) Unspecified fracture of upper end of unspecified humerus, initial encounter for closed fracture (06/01/22) Fracture of unspecified part of neck of right femur, initial encounter for closed fracture (06/01/22) Fracture of unspecified part of neck of left femur, initial encounter for closed fracture (06/01/22) Surgery Performed Operation Date: 06/01/22 13:30 Actual Procedures p Unipolar Hip(Left) - Meagan Nina MD Physical Therapy Treatment Note M2 PT-IP Current Condition Start: 06/02/22 11:44 Freq: NEEDED Status: Active Protocol: Document 06/02/22 10:10 AB (Rec: 06/02/22 14:07 AB [email or web address]) Physical Therapy Current Condition Current Condition Evaluation Date 06/02/22 Treatment Diagnosis s/p fall; L hip fx s/p hemiarthroplasty; L humberal fx; diff in walking Onset Date 06/01/22 M3 PT-IP Subjective Start: 06/02/22 11:44 Freq: NEEDED Status: Active Protocol: Document 06/03/22 14:43 KS (Rec: 06/03/22 15:15 KS [id number]) Subjective Physical Therapy Visit Type Type Treatment Note Visit Start Time 14:43 Visit Stop Time 15:02 Total Visit Minutes 19 Notes RN present for assistance. Therapy Pain Assessment Pain When Pain Assessed During Mobility Pain Present Pain Present Pain Reported M4 PT-IP Mobility and Gait Start: 06/02/22 11:44 Freq: NEEDED Status: Active Protocol: Document 06/03/22 14:43 KS (Rec: 06/03/22 15:15 KS [id number]) PT-Bed Mobility Assessment Supine to Sit Supine to Sit Maximum Assistance,2 Person Assistance,Head of Bed Elevated Sit to Supine Sit to Supine Maximum Assistance,2 Person Assistance Scooting Scooting to Edge of Bed Maximum Assistance Scooting Up and Down in Bed Maximum Assistance PT-Transfer Assessment Sit to and From Stand Sit to and from Stand Maximum Assistance,2 Person Assistance Transfers Transfer Destination Bed Transfer Technique STS Transfer Ability Level of Assist Maximum Assistance,Total Assistance,2 Person Assistance ,Use of Upper Extremities Comments Mobility Comments Pt in bed and hallucinating upon arrival. RN arrived. Pt agreeable to PT. Max A x2 for sup<>sit, pt able but w/ difficulty to maintain seated balance EOB. BP stable and denies symptoms. Max A x2 for scooting EOB. Attempted sit<> Stand w/ Max A x2 and QC - pt still unable to complete full stand and leaning against bed frame for support. This PM she refused further attempts at standing due to pain. Max A x2 for sit<>sup and repositioning in bed. Pt left in bed w/ alarm on and all needs in reach. Gait Assessment Comments Gait Comments Unable at this time. PT-Balance Assessment Sitting Balance and Reactions Static Sitting Balance Ability Fair Dynamic Sitting Balance Ability Fair Standing Balance and Reactions Static Standing Balance Ability Poor Dynamic Standing Balance Ability Poor Device Used QC M5 PT-IP Objective Assessments Start: 06/02/22 11:44 Freq: NEEDED Status: Active Protocol: Document 06/02/22 10:10 AB (Rec: 06/02/22 14:07 AB [email or web address]) Orientation Orientation/Cognition Level of Alertness Confusional State Orientation Name Language Function Ability Hard of Hearing Safety Awareness Decreased Safety Awareness Memory Description Short Term Impaired Gross Range of Motion Lower Extremity ROM Assessment Within Functional Limits Impairments increase LLE guarding with PROM limiting mobility Strength Lower Extremity Strength Assessment Left Impaired Hip 3-/5 Knee 3+/5 Sensation Assessment Sensation Gross Sensation WNL Muscle Tone Muscle Tone WNL Yes M6 PT-IP Treatment Start: 06/02/22 11:44 Freq: NEEDED Status: Active Protocol: Document 06/03/22 14:43 KS (Rec: 06/03/22 15:15 KS [id number]) Physical Therapy Treatment Education Education Provided Precautions,Weight Bearing Status,Post-Op Packet,Safety Other Treatments Other Treatment Performed Reminded pt of importance of wearing sling. Pt had removed sling on her own because she was baking a cake M7 PT-IP Assessment and Plan Start: 06/02/22 11:44 Freq: NEEDED Status: Active Protocol: Document 06/03/22 14:43 KS (Rec: 06/03/22 15:15 KS [id number]) PT Summary Assessment and Plan Potential Rehabilitation Potential Fair Status of Condition at Evaluation Evolving Summary Impairments Pain,ROM,Strength,Balance, Coordination,Sensation,Tone, Cognition,Bed Mobility, Transfers,Gait,Activity Tolerance Assessment Summary Pt limited by weakness, pain, and difficulty following commands. Continues to require Max A x2 for bed mobility and is unable to fully stand w/ Max A x2 due to leaning backwards against bed frame for support and unable to follow cues to use QC correctly or shift weight forward. Will continue to progress, but pt will require SNF to improve functional mobility and strength. Goals Bed Mobility Goal Minimal Assistance Transfer Goal Minimal Assistance Gait Goal Minimal Assistance,Cane,Marlon Walker Gait Distance 25 Days to Meet Goals 10 Frequency of Treatment Frequency Of Treatment Twice a Day Treatment Plan Physical Therapy Treatment Plan Bed Mobility Training,Transfer Training,Gait Training, Therapeutic Exercise,Balance Retraining,Post Op Education, Discharge Planning,Hot or Cold Pack,Neuromuscular Re-ed, Coordination Retraining,Manual Therapy Precautions Posterior Hip Precautions No Hip Flexion > 90 degrees,No Hip Internal Rotation,No Hip Adduction Shoulder Precautions Sling Other Precautions LLE: No active abduction Weight Bearing Status Weight Bearing Status Weight Bear as Tolerated Allowed Weight Bearing Amount (enter % LLE: WBAT or #) (%) LUE: NWB Recommendations To Nursing Amount of Assist Needed Mechanical Lift Discharge Recommendations PT Discharge Recommendations SNF Rehab Transportation Needs at Discharge Wheelchair/Cabulance
--- NOTE | 2022-06-03 18:07 | PC.NURSE ---
Day shift: Dr Echavarria made aware that Pt confused and hallucinating at times today.
[2022-06-04] VITALS (7 sets, daily range): BP systolic 126–160; BP diastolic 48–62; PULSE 69–76; RESP 14–18; TEMP 36.4–36.8; O2SAT 94–97
[2022-06-04] MEDS: ACETAMINOPHEN 325 MG TABLET 650 MG PO ×2 (00:11→06:15)
[2022-06-04 05:53] LABS: Hematocrit 23.9 % (36-46); Hemoglobin 8.2 g/dL (12.0-16.0); Mean Corpuscular HGB Conc 34.3 % (30-36); Mean Corpuscular Hemoglobin 31.1 PG (26-34); Mean Corpuscular Volume 90.7 fL (80-100); Platelet Count 102 X10^3/uL (150-400); Red Blood Cell Count 2.63 X10^6/uL (4.0-5.2); Red Cell Distribution Width 18.2 % (11.6-14.8); White Blood Cell Count 8.1 X10^3/uL (4.5-11.0)
[2022-06-04 05:59] LABS: BUN Creatinine Ratio 50.9 (6-22); Blood Urea Nitrogen 54 mg/dL (7-17); Calcium 8.6 mg/dL (8.4-10.2); Carbon Dioxide 23 mmol/L (22-32); Chloride 108 mmol/L (98-107); Estimated Glomerular Filt Rate 55 mL/min (>60); Glucose 110 mg/dL (80-110); HEMOLYSIS < 15 (0-50); Magnesium 2.2 mg/dL (1.6-2.3); Potassium 4.4 mmol/L (3.4-5.1); Sodium 134 mmol/L (137-145)
[2022-06-04 06:00] LABS: Alanine Aminotransferase 164 IU/L (<35); Albumin 2.8 g/dL (3.5-5.0); Alkaline Phosphatase 114 U/L (38-126); Aspartate Aminotransferase 59 IU/L (14-36); Bilirubin Total 0.5 mg/dL (0.2-1.3); Bilirubin Unconjugated 0.3 mg/dL (0.0-1.1); Globulin 2.7 g/dL (1.7-4.1); HEMOLYSIS < 15 (0-50); Total Protein 5.5 g/dL (6.3-8.2)
[2022-06-04 06:01] LABS: Add Manual Diff / Slide Review YES
[2022-06-04] MEDS: LEVOTHYROXINE 50 MCG TABLET PO (06:15)
[2022-06-04 06:56] LABS: Anisocytosis 2+; Hypochromasia 1+; Neutrophils Absolute Manual 5913 /uL (3000-5900); Total Cells Counted 100
--- NOTE | 2022-06-04 08:45 | P.PN_ITS ---
Subjective Subjective Date Patient Seen: 06/04/22 Time Patient Seen: 09:00 Interval history: Having increased left hip pain but has been less loopy after not receiving Dilaudid. Currently icing the hip. Has not had a BM in a couple of days so just drank MiraLax. Exam Vital Signs (past 8 hours): - 06/04/22 05:36 06/04/22 07:36 Temperature 97.7 F Pulse Rate 70 70 Respiratory Rate 16 16 Blood Pressure 132/57 L 135/58 L Pulse Oximetry 95 94 Fraction of Inspired Oxygen 28 Oxygen Delivery Method Nasal Cannula Oxygen Flow Rate 2 Narrative Exam Narrative: Gen: Alert, oriented, well-nourished but chronically ill appearing, 76 y.o. female HEENT: normocephalic, atraumatic, conjunctiva clear, sclera non-icteric, oral mucosa pink and moist Neck: supple, full ROM, no JVD, trachea is midline Resp: Lungs CTA, non-labored breathing CV: RRR, no murmur or rubs Abd: soft, non-tender, normoactive BTs Neuro: Alert and oriented X 4 w/no focal deficits. Speech clear and coherent. Extremities: no edema or joint effusions. L hip dressing c/d/i. L shoulder in s ling. Psyche: normal mood and affect. Objective Labs Result Diagrams: 06/04/22 05:35 06/04/22 05:35 Labs: Laboratory Results - last 24 hr 06/04/22 06/04/22 06/04/22 05:35 05:35 05:35 WBC 8.1 RBC 2.63 L Hgb 8.2 L Hct 23.9 L MCV 90.7 MCH 31.1 MCHC 34.3 RDW 18.2 H Plt Count 102 L Neut % (Auto) Not Reportable Lymph % (Auto) Not Reportable [place] % (Auto) Not Reportable Eos % (Auto) Not Reportable Baso % (Auto) Not Reportable Lymph # (Auto) Not Reportable [place] # (Auto) Not Reportable Baso # (Auto) Not Reportable Total Counted 100 Seg Neutrophils % 73.0 H Lymphocytes % (Manual) 14.0 L Monocytes % (Manual) 13.0 H Neutrophils # (Manual) 5913 H RBC Morphology See below Hypochromasia 1+ H Anisocytosis 2+ H Sodium 134 L Potassium 4.4 Chloride 108 H Carbon Dioxide 23 BUN 54 H Creatinine 1.06 H Estimated GFR 55 L BUN/Creatinine Ratio 50.9 H Glucose 110 Calcium 8.6 Magnesium 2.2 Total Bilirubin 0.5 Conjugated Bilirubin 0.0 Unconjugated Bilirubin 0.3 AST 59 H ALT 164 H Alkaline Phosphatase 114 Total Protein 5.5 L Albumin 2.8 L Globulin 2.7 Albumin/Globulin Ratio 1.0 PFSH Medical History Androgenic alopecia Anxiety and depression Asthma Borderline personality disorder Chronic GERD Diabetes Epileptic seizures Hyperlipidemia Irritable bowel disease Ischemic heart disease Osteoarthritis Personal history of malignant neoplasm of cervix uteri PTSD (post-traumatic stress disorder) Surgical History H/O adenoidectomy H/O exploratory laparotomy H/O knee surgery History of bilateral tubal ligation History of bladder suspension procedure History of cholecystectomy History of tonsillectomy Previous back surgery S/P removal of parathyroid gland Family History Mother CVA (cerebral vascular accident) Father Myocardial infarct Daughter Lung cancer Sister Ovarian cancer Sister Lymphoma Social History household members: none Smoking Status: Never smoker alcohol intake: never Assessment & Plan Assessment & Plan narrative: Mildly displaced Left intertrochanteric fracture, acute, present on admission - now s/p operative intervention with orthopedics on 06/01. - continue pain control - continue PT / OT - up to chair Fever, not present on admission - temp of 100.4F on 06/02 - WBC normal, no additional fevers thus far - monitor for repeat fevers and signs of infection Displaced proximal humeral fracture considered to be non operative and patient will wear a sling Transaminitis, unknown if chronic or acute. Improving - suspect some component of ischemia is most likely to cause this severe of a transaminitis. No bilirubin elevation thus far. No abdominal symptoms currently. - continue to follow, continues to improve GELY, improving - possibly due to same insult that resulted in transaminitis as well. - likely worsened by acute blood loss anemia from surgery. - continue to follow and renally adjust medications as necessary. - remove Dukes and use external catheter Hypomagnesemia - monitor and replete Acute blood loss anemia, stable - received 1 unit PRBC on 08/02 for Hgb 7.1 postop - no active signs of bleeding - daily CBC's Coronary artery disease, chronic continue home dose of carvedilol 25 mg 2 tablets twice daily, and nifedipine 60 mg 2 tabs p.o. daily Seizure disorder - keppra level pending - continue home keppra Dyslipidemia, chronic - hold statin due to transaminitis Hypothyroidism, chronic - continue home levothyroxine - TSH 2.34 Dispo: SNF on 06/05, pending PT/OT and medical stability. Code status: DNR/DNI as discussed with the patient who identifies her son Krishna who is her surrogate and POA. COVID-19 COVID-19 status: Negative Result date/Date tested (Pos, Neg/Pending): 06/01/22 Time Spent With Patient Critical Care time: I spent a total of [] minutes of critical care time on this patient's care today; this time is exclusive of procedural time. Quality VTE Deep Vein Thrombosis/Pulmonary Embolism Present on Admission: No
[2022-06-04] MEDS: polyethylene glycoL 3350 17 GM POWD.PACK PO (08:50)
[2022-06-04] MEDS: levETIRAcetam 250 MG TABLET 500 MG PO ×2 (08:50→21:21)
[2022-06-04] MEDS: NIFEdipine 30 MG TAB ER 60 MG PO (08:50)
[2022-06-04] MEDS: FLUoxetine 20 MG CAPSULE 40 MG PO (08:50)
[2022-06-04] MEDS: DOCUSATE 100 MG CAPSULE PO ×2 (08:50→21:21)
[2022-06-04] MEDS: SODIUM CHLORIDE 0.9% FLUSH 10 ML IV ×2 (08:52→21:22)
--- NOTE | 2022-06-04 10:27 | PT.IPTN ---
Current Diagnoses Acute posthemorrhagic anemia (06/01/22) Unspecified fracture of upper end of unspecified humerus, initial encounter for closed fracture (06/01/22) Fracture of unspecified part of neck of right femur, initial encounter for closed fracture (06/01/22) Fracture of unspecified part of neck of left femur, initial encounter for closed fracture (06/01/22) Surgery Performed Operation Date: 06/01/22 13:30 Actual Procedures p Unipolar Hip(Left) - Meagan Nina MD Physical Therapy Treatment Note M2 PT-IP Current Condition Start: 06/02/22 11:44 Freq: NEEDED Status: Active Protocol: Document 06/02/22 10:10 AB (Rec: 06/02/22 14:07 AB [id number]) Physical Therapy Current Condition Current Condition Evaluation Date 06/02/22 Treatment Diagnosis s/p fall; L hip fx s/p hemiarthroplasty; L humberal fx; diff in walking Onset Date 06/01/22 M3 PT-IP Subjective Start: 06/02/22 11:44 Freq: NEEDED Status: Active Protocol: Document 06/04/22 10:30 RBD (Rec: 06/04/22 10:48 RBD [id number]) Subjective Physical Therapy Visit Type Type Progress Note Visit Start Time 10:10 Visit Stop Time 10:27 Total Visit Minutes 17 Notes SIGNAL APPRENTICE and present to assit. Number of ADMINISTRATIVE SUPERVISOR Visits 4 Therapy Pain Assessment Pain When Pain Assessed At Rest Pain Present Pain Present Pain Reported Location Left Hip Intensity 4 Scale Used Numeric (0 - 10) Pain Management Techniques Distraction,Modification of Treatment,Re-positioning, Timing of Activity with Medications Left Shoulder Intensity 4 Pain Management Techniques Distraction,Modification of Treatment,Re-positioning, Timing of Activity with Medications M4 PT-IP Mobility and Gait Start: 06/02/22 11:44 Freq: NEEDED Status: Active Protocol: Document 06/04/22 10:30 RBD (Rec: 06/04/22 10:48 RBD [id number]) PT-Bed Mobility Assessment Supine to Sit Supine to Sit Maximum Assistance,2 Person Assistance,Head of Bed Elevated Sit to Supine Sit to Supine Maximum Assistance,2 Person Assistance Scooting Scooting to Edge of Bed Maximum Assistance PT-Transfer Assessment Sit to and From Stand Sit to and from Stand Maximum Assistance,2 Person Assistance Transfers Transfer Destination Chair Transfer Technique Stand Pivot Transfer Ability Level of Assist Maximum Assistance,Total Assistance,2 Person Assistance ,Use of Upper Extremities Comments Mobility Comments Pt in bed upon arrival and agreeable to PT. SIGNAL APPRENTICE present for assistance. Max A x 2 for sup <> sit and Mod A for sitting EOB. Dr arrived when patient was sitting. Max A x2 sit to standing. Pt. was unable to weight shift on to L LE and unable to take a step. Pt Max A x 2 stand to sit and Max A sitting EOB. Completed stand pivot transfer Max A x 2 into chair. Pt positioned in chair w/ alarm on and all need in reach. Gait Assessment Assistive Devices Assistive Device Gait Belt,Large Based Quad Cane Orthotic/Prosthetic Devices or Brace: No Factors Limiting Gait Function Factors Limiting Gait Function Decreased Activity Tolerance, Decreased Strength,Limited Range of Motion,Pain,Poor Balance,Poor Safety Awareness Comments Gait Comments Unable to weoight shift and take a step. PT-Balance Assessment Sitting Balance and Reactions Static Sitting Balance Ability Fair Dynamic Sitting Balance Ability Poor Standing Balance and Reactions Static Standing Balance Ability Poor Dynamic Standing Balance Ability Poor Device Used QC M5 PT-IP Objective Assessments Start: 06/02/22 11:44 Freq: NEEDED Status: Active Protocol: Document 06/02/22 10:10 AB (Rec: 06/02/22 14:07 AB [id number]) Orientation Orientation/Cognition Level of Alertness Confusional State Orientation Name Language Function Ability Hard of Hearing Safety Awareness Decreased Safety Awareness Memory Description Short Term Impaired Gross Range of Motion Lower Extremity ROM Assessment Within Functional Limits Impairments increase LLE guarding with PROM limiting mobility Strength Lower Extremity Strength Assessment Left Impaired Hip 3-/5 Knee 3+/5 Sensation Assessment Sensation Gross Sensation WNL Muscle Tone Muscle Tone WNL Yes M6 PT-IP Treatment Start: 06/02/22 11:44 Freq: NEEDED Status: Active Protocol: Document 06/04/22 10:30 RBD (Rec: 06/04/22 10:48 RBD [id number]) Physical Therapy Treatment Education Education Provided Precautions,Weight Bearing Status,Post-Op Packet,Safety Other Treatments Other Treatment Performed Patient unble to recall LE precations. M7 PT-IP Assessment and Plan Start: 06/02/22 11:44 Freq: NEEDED Status: Active Protocol: Document 06/04/22 10:30 RBD (Rec: 06/04/22 10:48 RBD [id number]) PT Summary Assessment and Plan Potential Rehabilitation Potential Fair Status of Condition at Evaluation Evolving Summary Impairments Pain,ROM,Strength,Balance, Coordination,Sensation,Tone, Cognition,Bed Mobility, Transfers,Gait,Activity Tolerance Assessment Summary Pt remains limited secondary to pain and weakness. She required Max A x 2 for bed mobilty and transfers. Pt is unable to weight shift on to L LE secondary to pain. pt will require SNF to improve functional mobility and strength. Goals Bed Mobility Goal Minimal Assistance Transfer Goal Minimal Assistance Gait Goal Minimal Assistance,Cane,Marlon Walker Gait Distance 25 Days to Meet Goals 10 Frequency of Treatment Frequency Of Treatment Twice a Day Treatment Plan Physical Therapy Treatment Plan Bed Mobility Training,Transfer Training,Gait Training, Therapeutic Exercise,Balance Retraining,Post Op Education, Discharge Planning,Hot or Cold Pack,Neuromuscular Re-ed, Coordination Retraining,Manual Therapy Precautions Posterior Hip Precautions No Hip Flexion > 90 degrees,No Hip Internal Rotation,No Hip Adduction Shoulder Precautions Sling Other Precautions LLE: No active abduction Weight Bearing Status Weight Bearing Status Weight Bear as Tolerated Allowed Weight Bearing Amount (enter % LLE: WBAT or #) (%) LUE: NWB Recommendations To Nursing Amount of Assist Needed Mechanical Lift Discharge Recommendations PT Discharge Recommendations SNF Rehab Transportation Needs at Discharge Wheelchair/Cabulance
--- NOTE | 2022-06-04 11:00 | PM.PNPO.1 ---
Subjective Subjective Interval history: She notes she is doing reasonably well but has substantial shoulder pain. She is sitting at the bedside. She denies a history of crunching or clicking in the left hip. Exam Vital Signs (past 8 hours): - 06/04/22 05:36 06/04/22 07:36 Temperature 97.7 F Pulse Rate 70 70 Respiratory Rate 16 16 Blood Pressure 132/57 L 135/58 L Pulse Oximetry 95 94 Fraction of Inspired Oxygen 28 Oxygen Delivery Method Nasal Cannula Oxygen Flow Rate 2 Narrative Exam Narrative: She is alert she is oriented she is sitting at the bedside, she has fair range of motion with her fingers, she has slight decreased manager wastewater strength in the left arm, her sling is intact, her dressing is dry on the left hip, there is minimal pain with gentle range of motion in the left leg, her calf to soft. Objective Labs Result Diagrams: 06/04/22 05:35 06/04/22 05:35 Labs: Laboratory Results - last 24 hr 06/04/22 06/04/22 06/04/22 05:35 05:35 05:35 WBC 8.1 RBC 2.63 L Hgb 8.2 L Hct 23.9 L MCV 90.7 MCH 31.1 MCHC 34.3 RDW 18.2 H Plt Count 102 L Neut % (Auto) Not Reportable Lymph % (Auto) Not Reportable [place] % (Auto) Not Reportable Eos % (Auto) Not Reportable Baso % (Auto) Not Reportable Lymph # (Auto) Not Reportable [place] # (Auto) Not Reportable Baso # (Auto) Not Reportable Total Counted 100 Seg Neutrophils % 73.0 H Lymphocytes % (Manual) 14.0 L Monocytes % (Manual) 13.0 H Neutrophils # (Manual) 5913 H RBC Morphology See below Hypochromasia 1+ H Anisocytosis 2+ H Sodium 134 L Potassium 4.4 Chloride 108 H Carbon Dioxide 23 BUN 54 H Creatinine 1.06 H Estimated GFR 55 L BUN/Creatinine Ratio 50.9 H Glucose 110 Calcium 8.6 Magnesium 2.2 Total Bilirubin 0.5 Conjugated Bilirubin 0.0 Unconjugated Bilirubin 0.3 AST 59 H ALT 164 H Alkaline Phosphatase 114 Total Protein 5.5 L Albumin 2.8 L Globulin 2.7 Albumin/Globulin Ratio 1.0 PFSH Medical History Androgenic alopecia Anxiety and depression Asthma Borderline personality disorder Chronic GERD Diabetes Epileptic seizures Hyperlipidemia Irritable bowel disease Ischemic heart disease Osteoarthritis Personal history of malignant neoplasm of cervix uteri PTSD (post-traumatic stress disorder) Surgical History H/O adenoidectomy H/O exploratory laparotomy H/O knee surgery History of bilateral tubal ligation History of bladder suspension procedure History of cholecystectomy History of tonsillectomy Previous back surgery S/P removal of parathyroid gland Family History Mother CVA (cerebral vascular accident) Father Myocardial infarct Daughter Lung cancer Sister Ovarian cancer Sister Lymphoma Social History household members: none Smoking Status: Never smoker alcohol intake: never Assessment & Plan Post-op Postoperative Procedures: Procedures Operation Date: 06/01/22 13:30 Actual Procedure Side Surgeon p Unipolar Hip Left Meagan Nina MD Postoperative day: 3 Postoperative status: doing well Postoperative plan narrative: She is doing her reasonably well but she is at least a 1 person assist to get out of bed to a chair. I think she does look like she stable for transfer to the longterm facility tomorrow. She will be weight-bearing as tolerated on the left lower extremity but needs to not work on hip abductor strengthening exercises. She is going to continue full-time sling use on the left. She got 1 unit of packed RBCs yesterday and her hematocrit is improved. She has minimal symptoms today but is moving very cautiously. Quality VTE Deep Vein Thrombosis/Pulmonary Embolism Present on Admission: No
[2022-06-04] MEDS: HYDROCODONE/ACET 5/325 TABLET 1 TAB PO ×2 (11:19→21:21)
[2022-06-04] MEDS: ENOXAPARIN 40 MG/0.4 ML SYRINGE SUBCUT (13:54)
--- NOTE | 2022-06-04 15:39 | PC.NURSE ---
Day shift: Per Dr Matthew FRYE's d/c'd at this time.
--- NOTE | 2022-06-04 17:46 | PC.NURSE ---
Day shift: Pt OOB to chair for dinner. Pt did not want dinner and is back in bed now with PUREWICK in place. 2 person assist. Pt upset this late afternoon after her Son told her she may have to stay in a fci. Explained to Pt that this is not the case and will need time there for rehab/PT. Pt remains upset and not hungry. Also did not want any pain meds at this time. Call light in reach. Bed alarm is on.
--- NOTE | 2022-06-04 18:11 | PC.NURSE ---
Day shift: Pt remains concerned about what will happen after d/c from here. States that her Son has POA and plans on selling some of her things and her apartment. Pt encouraged to talk with CM/SW tomorrow.
[2022-06-04] MEDS: OLANZapine 2.5 MG TABLET PO (21:21)
[2022-06-05] MEDS: ONDANSETRON 4 MG ODT PO (00:38)
[2022-06-05 06:00] VITALS: BP 157/81; PULSE 78; RESP 17; O2SAT 97
[2022-06-05] MEDS: LEVOTHYROXINE 50 MCG TABLET PO (06:20)
[2022-06-05 07:31] LABS: Add Manual Diff / Slide Review NO; Basophils Absolute Auto 0 /uL (0-100); Basophils Percent Auto 0.1 % (0-2); Eosinophils Absolute Auto 100 /uL (0-450); Eosinophils Percent Auto 0.7 % (2-4); Hematocrit 23.7 % (36-46); Hemoglobin 8.3 g/dL (12.0-16.0); Lymphocytes Absolute Auto 1200 /uL (1100-4500); Lymphocytes Percent Auto 13.8 % (25-40); Mean Corpuscular HGB Conc 34.9 % (30-36); Mean Corpuscular Hemoglobin 31.6 PG (26-34); Mean Corpuscular Volume 90.6 fL (80-100); Monocytes Absolute Auto 1700 /uL (0-900); Monocytes Percent Auto 18.5 % (3-14); Neutrophils Absolute Auto 6000 /uL (1500-7000); Neutrophils Percent Auto 66.9 % (50-75); Platelet Count 170 X10^3/uL (150-400); Red Blood Cell Count 2.62 X10^6/uL (4.0-5.2); Red Cell Distribution Width 18.5 % (11.6-14.8); White Blood Cell Count 8.9 X10^3/uL (4.5-11.0)
[2022-06-05 07:40] VITALS: BP 148/72; PULSE 77; RESP 18; TEMP 37.1; O2SAT 96
[2022-06-05 07:42] LABS: Blood Urea Nitrogen 42 mg/dL (7-17); Carbon Dioxide 22 mmol/L (22-32); Chloride 107 mmol/L (98-107); Potassium 4.8 mmol/L (3.4-5.1); Sodium 134 mmol/L (137-145)
[2022-06-05 07:43] LABS: Alanine Aminotransferase 109 IU/L (<35); Alkaline Phosphatase 115 U/L (38-126); Aspartate Aminotransferase 38 IU/L (14-36); BUN Creatinine Ratio 48.8 (6-22); Bilirubin Total 0.5 mg/dL (0.2-1.3); Estimated Glomerular Filt Rate > 60 mL/min (>60); Glucose 126 mg/dL (80-110); HEMOLYSIS < 15 (0-50)
--- NOTE | 2022-06-05 07:46 | PC.NURSE ---
Provider, Cherelle Marti, notified in person 06/05/2022 at 0739 that pt had bladder scan result of 739 mL. Straight cath was performed with 875 mL of urine output and pt tolerated it well. Residual bladder scan result was 126 mL. No new orders were indicated by the provider.
--- NOTE | 2022-06-05 09:15 | P.DS_ITS ---
History of Present Illness History of Present Illness Date Patient Seen: 06/05/22 Time Patient Seen: 09:16 Chief complaint: GLF shoulder and hip pain Narrative: Ms Medina is a 76 year old woman who fell from a standing position last night.? She complains of left arm and left leg pain.? Medical history including borderline diabetes (pt denies use of medication), hyperlipidemia, ischemic heart disease, history of seizures none reported in last 10 years, asthma, os teoarthritis, PTSD, depression, anxiety, borderline personality disorder.? Discharge Providers Provider Date of admission: 06/01/22 03:51 Discharge Date: 06/05/22 Consults: 06/01/22 02:33 Consult to Orthopedic Surgery Stat Comment: Consulting Provider: Meagan Nina Reason for consultation: Left intertrochanteric fx, L prox humerus fx Has provider been notified: Yes 06/01/22 04:16 Consult to Physician Routine Comment: Consulting Provider: Meagan Nina Reason for consultation: left introchanter fracture Has provider been notified: Yes 06/01/22 14:06 Consult to Anesthesiology Routine Comment: Consulting Provider: Anesthesiologist Reason for consultation: Regional block for post operative pain control 06/01/22 18:03 Consult to Discharge Planning Routine Comment: Consult to Physical Therapy Evaluate & Treat Comment: no active abduction, use andre walker ?, sling left Physician Instructions: post op MEHDI protocol Consult to Respiratory Therapy Evaluate & Treat Comment: Physician Instructions: Evaluate and treat Discharge provider: Renu Massey MD Summary Hospital Course Discharge Diagnosis: 1. cemented unipolar, ORIF 2. Transaminitis, etiology not clear, improving 3. GELY, present on admission, improved 4. Acute blood loss anemia, s/p 1 unit PRBC 5. CAD 6. Seizure disorder 7. Hyperlipidemia 8. Hypothyroidism 9. Acute encephalopathy, likely secondary to narcotics Hospital Course: Patient was admitted to the hospital following a fall. She sustained a left i ntertrochanteric fracture and a left humeral head fracture. The humerus fracture did not require operative treatment. The left arm was placed in a sling. She underwent left hip cemented unipolar ORIF. She did have acute blood loss and required one unit of prbc's. She developed acute encephalopathy secondary to narcotics which improved after they were discontined. She developed a fever postoperatively, but had a normal WBC and no evidence of infection. She was seen by PT and OT. She made slow but steady recovery and was deemed appropriate for discharge to SNF. Status at Discharge Cognitive/behavioral status at discharge: calm Functional status at discharge: uses cane/walker Overall status at discharge: patient is progressing back to baseline Exam Vital Signs (past 8 hours): - 06/05/22 06:00 06/05/22 07:40 Temperature 98.8 F Pulse Rate 78 77 Respiratory Rate 17 18 Blood Pressure 157/81 H 148/72 H Pulse Oximetry 97 96 Oxygen Flow Rate 0 0 Fraction of Inspired Oxygen 28 Oxygen Delivery Method Room Air Oxygen Flow Rate 0 Narrative Exam Narrative: pleasant female in no acute distress HENMT Other: NC/AT, PERRL, EOMI Resp Other: Lungs: Clear to auscultation Cardio Other: CV: RRR nl Sl S2 2/6 BRADY GI Other: ABD: soft/ nontender/ non distended Extrem Other: left arm in sling, left leg, dressing dry Objective Labs Result Diagrams: 06/05/22 06:45 06/05/22 06:45 Labs: Laboratory Results - last 24 hr 06/05/22 06/05/22 06:45 06:45 WBC 8.9 RBC 2.62 L Hgb 8.3 L Hct 23.7 L MCV 90.6 MCH 31.6 MCHC 34.9 RDW 18.5 H Plt Count 170 Neut % (Auto) 66.9 Lymph % (Auto) 13.8 L [place] % (Auto) 18.5 H Eos % (Auto) 0.7 L Baso % (Auto) 0.1 Neut # (Auto) 6000 Lymph # (Auto) 1200 [place] # (Auto) 1700 H Eos # (Auto) 100 Baso # (Auto) 0 Sodium 134 L Potassium 4.8 Chloride 107 Carbon Dioxide 22 BUN 42 H Creatinine 0.86 Estimated GFR > 60 BUN/Creatinine Ratio 48.8 H Glucose 126 H Calcium 9.0 Total Bilirubin 0.5 AST 38 H ALT 109 H Alkaline Phosphatase 115 Total Protein 6.0 L Albumin 3.0 L Globulin 3.0 Albumin/Globulin Ratio 1.0 PFSH Medical History Androgenic alopecia Anxiety and depression Asthma Borderline personality disorder Chronic GERD Diabetes Epileptic seizures Hyperlipidemia Irritable bowel disease Ischemic heart disease Osteoarthritis Personal history of malignant neoplasm of cervix uteri PTSD (post-traumatic stress disorder) Surgical History H/O adenoidectomy H/O exploratory laparotomy H/O knee surgery History of bilateral tubal ligation History of bladder suspension procedure History of cholecystectomy History of tonsillectomy Previous back surgery S/P removal of parathyroid gland Family History Mother CVA (cerebral vascular accident) Father Myocardial infarct Daughter Lung cancer Sister Ovarian cancer Sister Lymphoma Social History household members: none Smoking Status: Never smoker alcohol intake: never Discharge Assessment & Plan Assessment and Plan Assessment: 1. cemented unipolar, ORIF 2. Transaminitis, etiology not clear, improving 3. GELY, present on admission, improved 4. Acute blood loss anemia, s/p 1 unit PRBC 5. CAD 6. Seizure disorder 7. Hyperlipidemia 8. Hypothyroidism 9. Acute encephalopathy, likely secondary to narcotics Plan of Treatment: To SNF Discharge Plan Discharge Plan Patient Disposition: [facility] Other facility: [facility] Consult as needed: Dental, Hearing, Mental health, Podiatry and Vision Discharge orders & Medications Prescriptions: New hydrocodone-acetaminophen 5-325 mg Tablet 1 tab PO Q4HR PRN (Reason: Pain, Moderate (4-6)) Qty: 20 0RF enoxaparin [Lovenox] 40 mg/0.4 mL Syringe 40 mg SUBCUT DAILY Qty: 30 0RF docusate sodium 100 mg Capsule 100 mg PO BID Qty: 30 0RF acetaminophen 325 mg Tablet 325 mg PO Q6HR PRN (Reason: Pain, Mild (1-3)) Qty: 30 0RF Continued levetiracetam 500 mg tablet 2 tab PO BID Label Comments: Take 1 tablet by mouth twice a day olanzapine 7.5 mg tablet 2.5 mg PO DAILY levothyroxine 50 mcg tablet 50 mcg PO DAILY nifedipine 60 mg tablet extended release 2 tab PO DAILY fluoxetine 20 mg capsule 2 cap PO DAILY rosuvastatin 20 mg tablet 1 tab PO DAILY Follow up/Referrals: Meagan Nina MD [Physician] - 2 Weeks (Follow up w/ Dr Nina or PA between June 11 and June 15.) Diet/Activity/Treatments Diet: Low-fat and Low-sodium Liquid consistency: Normal/Thin Food texture: Regular Activity: WBAT to LLE w/ posterior hip precautions. She should avoid active abduction and abduction strengthening exercises because of her comminuted greater trochanter fracture. Skin/Wound/Dressing Care Dressing: May shower. Leave Aquacel dressing in place until follow up appointment in office. No bathing or otherwise soaking incision. [facility] Reason for rehabilitation: Post-operative therapy Rehab type: Physical therapy and Occupational therapy Quality VTE Deep Vein Thrombosis/Pulmonary Embolism Present on Admission: No
[2022-06-05] MEDS: NIFEdipine 30 MG TAB ER 60 MG PO (09:51)
[2022-06-05] MEDS: levETIRAcetam 250 MG TABLET 500 MG PO (09:51)
[2022-06-05] MEDS: ENOXAPARIN 40 MG/0.4 ML SYRINGE SUBCUT (09:51)
[2022-06-05] MEDS: FLUoxetine 20 MG CAPSULE 40 MG PO (09:51)
[2022-06-05] MEDS: DOCUSATE 100 MG CAPSULE PO (09:51)
[2022-06-05] MEDS: SODIUM CHLORIDE 0.9% FLUSH 10 ML IV (09:52)
--- NOTE | 2022-06-05 10:31 | CM.DPC ---
DCP Cont: Patient is to be discharging to [facility] today. Called daughter, Coni, and she has confirmed that she can pick her up, she will be stopping by her apartment first, before coming here to transport patient to [facility]. Spoke to Linette at [facility], she is expecting patient. Faxed over orders, script, PASSR, and DC Summary to [facility]. Placed stat COVID swab, pending results. Nurse, Cesia, is aware, she will also be getting a rudolph secondary to urinary retention. P: Patient is to be discharging to [facility] in [place] today, and daughter will transport. Pamella Romero RN/Head Mixer
[2022-06-05 10:41] LABS: COVID19 -Nasal RAPID Negative (Negative)
--- NOTE | 2022-06-05 11:41 | PT.IPTN ---
Current Diagnoses Acute posthemorrhagic anemia (06/01/22) Unspecified fracture of upper end of unspecified humerus, initial encounter for closed fracture (06/01/22) Fracture of unspecified part of neck of right femur, initial encounter for closed fracture (06/01/22) Fracture of unspecified part of neck of left femur, initial encounter for closed fracture (06/01/22) Surgery Performed Operation Date: 06/01/22 13:30 Actual Procedures p Unipolar Hip(Left) - Meagan Nina MD Physical Therapy Treatment Note M2 PT-IP Current Condition Start: 06/02/22 11:44 Freq: NEEDED Status: Discharge Protocol: Document 06/05/22 11:25 SP (Rec: 06/05/22 16:06 SP [id number]) Physical Therapy Current Condition Current Condition Evaluation Date 06/02/22 Treatment Diagnosis s/p fall; L hip fx s/p hemiarthroplasty; L humberal fx; diff in walking Onset Date 06/01/22 M3 PT-IP Subjective Start: 06/02/22 11:44 Freq: NEEDED Status: Discharge Protocol: Document 06/05/22 11:25 SP (Rec: 06/05/22 16:06 SP [id number]) Subjective Physical Therapy Visit Type Type Treatment Note Visit Start Time 11:25 Visit Stop Time 11:41 Total Visit Minutes 16 Notes MITER GRINDER OPERATOR and nurse assisted as 2nd person. Daughter present, observed only throughout tx, will be transporting pt to [facility] and staff will assist transfer on other end when gets there. Number of ART LIBRARIAN Visits 5 Physical Therapy Visit Comments Patient Comments Pt willing to work with therapy, prepare for DC and transportation via daughter staff assist mobility. Therapy Pain Assessment Pain When Pain Assessed During Mobility Pain Present Pain Present Pain Reported Location Left Hip Intensity 4 Scale Used Numeric (0 - 10) Description With Movement Pain Behaviors Facial Grimacing Pain Management Techniques Distraction,Modification of Treatment,Re-positioning, Timing of Activity with Medications Left Shoulder Intensity 4 Scale Used Numeric (0 - 10) Description With Movement Pain Behaviors Facial Grimacing Pain Management Techniques Distraction,Modification of Treatment,Re-positioning, Timing of Activity with Medications M4 PT-IP Mobility and Gait Start: 06/02/22 11:44 Freq: NEEDED Status: Discharge Protocol: Document 06/05/22 11:25 SP (Rec: 06/05/22 16:06 SP [id number]) PT-Bed Mobility Assessment Scooting Scooting to Edge of Bed Moderate Assistance,Maximum Assistance PT-Transfer Assessment Sit to and From Stand Sit to and from Stand Moderate Assistance,Maximum Assistance,2 Person Assistance ,Use of Upper Extremities Equipment Transfer Assistive Device Gait Belt,Large Based Quad Cane Orthotic/Prosthetic Devices or Brace: No Transfers Transfer Destination Wheelchair,Car Transfer Technique Stand Step Pivot Transfer Ability Level of Assist Moderate Assistance,Maximum Assistance,2 Person Assistance ,Use of Upper Extremities Comments Mobility Comments Pt was upright sitting with nursing R>LLE off side EOB CGA , ART LIBRARIAN assisted Mod- Max A x1-2 to complete scooting. Sit> stand Mod-Max A x2 for trunk support and stabilize LBQC in RUE for self stability WB during transfer bed>wc to L, cued marching steps for improved foot clearance. ART LIBRARIAN adjusted LUE more back positioning in sling for proper support. Pt wheeled down to daughter's car, SPT wc to car Mod A x2 for trunk stability support and LBQC in RUE stability for self mobilizing, continued cues for marching steps to L improved foot clearance. Max A x1 and Min A 2nd person for BLE into car and scooting back in passengers front seat. Suggested in future may want to get a transfer handle for WB support in/out car. Gait Assessment Gait Gait Assistance Required: Moderate Assistance,Maximum Assistance,2 Person Assist Distance (Feet) 2 Able to Maintain Weight Bearing Status Yes During Gait Assistive Devices Assistive Device Gait Belt,Large Based Quad Cane Orthotic/Prosthetic Devices or Brace: Yes Gait Deviations General Gait Pattern Decreased Stride Length, Decreased Feet Clearance, Lateral Trunk Lean,Step-to Gait Factors Limiting Gait Function Factors Limiting Gait Function Decreased Activity Tolerance, Decreased Strength,Limited Range of Motion,Pain,Poor Balance,Poor Safety Awareness Comments Gait Comments 2 stand pivot transfers to L only using LBQC Mod- Max A x2 , improved foot clearance with cuing marching steps and trunk/ QC support to stabilize . PT-Balance Assessment Sitting Balance and Reactions Static Sitting Balance Ability Good Dynamic Sitting Balance Ability Fair Standing Balance and Reactions Static Standing Balance Ability Poor Dynamic Standing Balance Ability Poor Device Used QC M5 PT-IP Objective Assessments Start: 06/02/22 11:44 Freq: NEEDED Status: Discharge Protocol: Document 06/02/22 10:10 AB (Rec: 06/02/22 14:07 AB [id number]) Orientation Orientation/Cognition Level of Alertness Confusional State Orientation Name Language Function Ability Hard of Hearing Safety Awareness Decreased Safety Awareness Memory Description Short Term Impaired Gross Range of Motion Lower Extremity ROM Assessment Within Functional Limits Impairments increase LLE guarding with PROM limiting mobility Strength Lower Extremity Strength Assessment Left Impaired Hip 3-/5 Knee 3+/5 Sensation Assessment Sensation Gross Sensation WNL Muscle Tone Muscle Tone WNL Yes M6 PT-IP Treatment Start: 06/02/22 11:44 Freq: NEEDED Status: Discharge Protocol: Document 06/05/22 11:25 SP (Rec: 06/05/22 16:06 SP [id number]) Physical Therapy Treatment Education Education Provided Precautions,Weight Bearing Status,Post-Op Packet,Safety Other Treatments Other Treatment Performed Patient unble to recall LE precautions. ART LIBRARIAN reviewed post op ex and precautions verbally and showed folder of HOs. M7 PT-IP Assessment and Plan Start: 06/02/22 11:44 Freq: NEEDED Status: Discharge Protocol: Document 06/05/22 11:25 SP (Rec: 06/05/22 16:06 SP [id number]) PT Summary Assessment and Plan Potential Rehabilitation Potential Fair Status of Condition at Evaluation Evolving Summary Impairments Pain,ROM,Strength,Balance, Coordination,Sensation,Tone, Cognition,Bed Mobility, Transfers,Gait,Activity Tolerance Progress Towards Goals Progressing Toward Goals,Slow Progress due to Pain,Slow Progress due to Activity Tolerance Assessment Summary Pt improved with Max A x1 for bed mob, Mod-Max A x2 using LBQC transfers to L, cues for marching steps and needed stabilize QC and trunk support to complete. Assisted pt into daughter's car for transportation to [facility] rehab to progress functional mobililty strengthening. Pt is ok for DC when medically cleared. Goals Bed Mobility Goal Minimal Assistance Transfer Goal Minimal Assistance Gait Goal Minimal Assistance,Cane,Marlon Walker Gait Distance 25 Days to Meet Goals 10 Frequency of Treatment Frequency Of Treatment Twice a Day Treatment Plan Physical Therapy Treatment Plan Bed Mobility Training,Transfer Training,Gait Training, Therapeutic Exercise,Balance Retraining,Post Op Education, Discharge Planning,Hot or Cold Pack,Neuromuscular Re-ed, Coordination Retraining,Manual Therapy Other Recommendations and Next Treatment bed mob, transfers and gait Focus using QC chair follow. Review precautions and LE ex. Precautions Posterior Hip Precautions No Hip Flexion > 90 degrees,No Hip Internal Rotation,No Hip Adduction Shoulder Precautions Sling Other Precautions LLE: No active abduction Weight Bearing Status Weight Bearing Status Weight Bear as Tolerated Allowed Weight Bearing Amount (enter % LLE: WBAT or #) (%) LUE: NWB Recommendations To Nursing Amount of Assist Needed 2 Person Assist Discharge Recommendations PT Discharge Recommendations SNF Rehab Transportation Needs at Discharge Private Vehicle,Wheelchair/ Cabulance
--- NOTE | 2022-06-05 12:02 | PC.NURSE ---
Patient just discharged to [facility] and report given. Patient was a 2person assist with cane and gaitbelt and three staff to get her in the car. [facility] is aware of how patients transfers. Her aquacel to .hip was clean dry and intact. She wears a sling to the l.arm and is non weight bearing. Patient left around 1145.
[2022-06-07 13:54] LABS: Levetiracetam Keppra 1.5 ug/mL (10.0-40.0)
== END 2022-06-05 11:45 | DRG 521 ==
LOC: ED 06-01 00:39 → AC 06-01 03:53
PROVIDERS: Internal Medicine; Orthopaedic Surgery; Student in an Organized Health Care Education/Training Program; Admitting Provider Nurse Practitioner Family; Emergency Provider Emergency Medicine; Referring Provider Emergency Medicine; Visit Provider Nurse Practitioner Family
PROC: 0SRS0JZ Replacement of Left Hip Joint, Femoral Surface with Synthetic Substitute, Open Approach (ICD-10-PCS; CPT 27125; principal; 2022-06-01 13:30)
DX: S72.142A Displaced intertrochanteric fracture of left femur, initial encounter for closed fracture (principal); G92.8 Other toxic encephalopathy; S42.292A Other displaced fracture of upper end of left humerus, initial encounter for closed fracture; D62 Acute posthemorrhagic anemia; N17.9 Acute kidney failure, unspecified; F60.3 Borderline personality disorder; E83.42 Hypomagnesemia; T48.3X5A Adverse effect of antitussives, initial encounter; I25.10 Atherosclerotic heart disease of native coronary artery without angina pectoris; E78.5 Hyperlipidemia, unspecified; E03.9 Hypothyroidism, unspecified; G40.909 Epilepsy, unspecified, not intractable, without status epilepticus; R74.01 Elevation of levels of liver transaminase levels; W18.30XA Fall on same level, unspecified, initial encounter; Z66 Do not resuscitate; Z20.822 Contact with and (suspected) exposure to COVID-19
CPT/HCPCS: 36415; 36430; 71045; 71260; 72170; 73030; 73502; 74177; 80048; 80053; 80074; 80076; 80177; 81001; 82962; 83735; 84443; 85007; 85014; 85018; 85025; 86850; 86900; 86901; 87635; 93005; 93010; 94760; 96374; 96375; 97162; 97530; 99284; 99285; C1776; C9803; P9016; C9290; J0171; J1170; J1650; J2270; J2405; J2704; J3010; J3475; Q9967

== ENCOUNTER → 2023-01-25 13:41 | Outpatient (CLI) | payer MEDICARE, OTHER, SELFPAY ==
[2022-06-01 05:10] VITALS: BMI 24.7
--- NOTE | 2023-01-25 | DI.MG.S_ITS ---
BILATERAL DIGITAL SCREENING MAMMOGRAM 3D/2D WITH CAD: 01/25/2023 CLINICAL: Routine screening. Baseline exam by default. No prior exams were available for comparison. There are scattered areas of fibroglandular density in both breasts (category b / 25%-50% glandular tissue). Current study was also evaluated with a Computer Aided Detection (CAD) system. No significant masses, calcifications, or other findings are seen in either breast. IMPRESSION: NEGATIVE There is no mammographic evidence of malignancy. A 1 year screening mammogram is recommended. Based on the Tyrer Cuzick model (a risk assessment model) the patient's lifetime risk is 1.7% and her 10 year risk is 1.7%. According to the ACR, ACS, and NCCN guidelines, an annual breast MRI exam along with mammogram is recommended if the patient's lifetime risk is 20% or greater. This exam was interpreted at Station ID: [id number]. NOTE: For mammograms, a report in lay terms will be sent to the patient. Approximately 15% of breast malignancies will not be visualized mammographically. In the management of a palpable breast mass, a negative mammogram must not discourage biopsy of a clinically suspicious lesion. Electronically Signed By: Pablo Brooks M.D., jr/noemi:01/25/2023 16:02:21 letter sent: Normal Exam ACR BI-RADS Category 1: Negative [id number]
== END ==
PROVIDERS: Referring Provider Nurse Practitioner; Visit Provider Nurse Practitioner
DX: Z12.31 Encounter for screening mammogram for malignant neoplasm of breast (principal)
CPT/HCPCS: 77063; 77067

== ENCOUNTER 2023-09-04 07:20 | Day surgery (SDC) | payer MEDICARE, OTHER, SELFPAY ==
[2022-06-01 05:10] VITALS: BMI 24.7
[2023-09-04 07:47] VITALS: BMI 24.2
[2023-09-04 07:52] VITALS: BP 143/84; PULSE 82; RESP 16; TEMP 36.2; O2SAT 96
[2023-09-04] MEDS: LACTATED RINGERS 1,000 ML 150 ML IV (07:59)
--- NOTE | 2023-09-04 08:11 | P.HP_ITS ---
History of Present Illness History of Present Illness Date Patient Seen: 09/04/23 Time Patient Seen: 08:11 Chief complaint: Colonoscopy Narrative: 77-year-old woman with a personal history of colonic polyps here for screening colonoscopy. Last colonoscopy 2017 normal. No abdominal concerns today including pain unintentional weight loss blood per rectum or anorexia. No family history of intestinal malignancy. FOR[facility] Medical History Chronic GERD Anxiety and depression Borderline personality disorder PTSD (post-traumatic stress disorder) Irritable bowel disease Androgenic alopecia Osteoarthritis Asthma Personal history of malignant neoplasm of cervix uteri Epileptic seizures Ischemic heart disease Hyperlipidemia Diabetes Surgical History History of cholecystectomy History of bladder suspension procedure Previous back surgery H/O knee surgery H/O exploratory laparotomy S/P removal of parathyroid gland History of tonsillectomy H/O adenoidectomy History of bilateral tubal ligation Family History Mother CVA (cerebral vascular accident) Father Myocardial infarct Daughter Lung cancer Sister Ovarian cancer Sister Lymphoma Social History household members: family and none Smoking Status: Never smoker alcohol intake: never Meds Home Medications and Allergies Home Medications Medication Instructions Recorded Confirmed Type fluoxetine 20 mg capsule 2 cap PO DAILY 06/01/22 09/04/23 History levetiracetam 500 mg tablet 2 tab PO BID 06/01/22 09/04/23 History levothyroxine 50 mcg tablet 50 mcg PO DAILY 06/01/22 09/04/23 History nifedipine 60 mg tablet,extended 2 tab PO DAILY 06/01/22 09/04/23 History release olanzapine 7.5 mg tablet 2.5 mg PO DAILY 06/01/22 06/01/22 History rosuvastatin 20 mg tablet 1 tab PO DAILY 06/01/22 09/04/23 History acetaminophen 325 mg tablet 325 mg PO Q6HR PRN Pain, Mild 06/05/22 09/04/23 Rx (1-3) #30 tabs diclofenac sodium 50 mg 50 mg PO BID 09/04/23 09/04/23 History tablet,delayed release primidone 250 mg tablet 250 mg PO BID 09/04/23 09/04/23 History ropinirole 0.5 mg tablet 0.5 mg PO DAILY 09/04/23 09/04/23 History Allergies Allergy/AdvReac Type Severity Reaction Status Date / Time acetaminophen [From Tylox] AdvReac Verified 09/04/23 07:32 aspirin AdvReac Verified 09/04/23 07:32 cefaclor [From Ceclor] AdvReac Verified 09/04/23 07:32 cephalexin [From Keflex] AdvReac Verified 09/04/23 07:32 chlorzoxazone AdvReac Verified 09/04/23 07:32 [From Parafon Forte] clopidogrel [From Plavix] AdvReac Verified 09/04/23 07:32 codeine AdvReac Verified 09/04/23 07:32 hydroxyzine [From Atarax] AdvReac Verified 09/04/23 07:32 liothyronine [From Cytomel] AdvReac Verified 09/04/23 07:32 meperidine [From Demerol] AdvReac Verified 09/04/23 07:32 mirtazapine [From Remeron] AdvReac Verified 09/04/23 07:32 naproxen [From Naprosyn] AdvReac Verified 09/04/23 07:32 oxycodone [From Tylox] AdvReac Verified 09/04/23 07:32 Penicillins AdvReac Verified 09/04/23 07:32 pentazocine [From Talwin] AdvReac Verified 09/04/23 07:32 propoxyphene AdvReac Verified 09/04/23 07:32 [From Darvocet-N] rifampin AdvReac Verified 09/04/23 07:32 Exam Vital Signs (past 8 hours): - 09/04/23 07:52 Temperature 97.1 F L Pulse Rate 82 Respiratory Rate 16 Blood Pressure 143/84 H Pulse Oximetry 96 Oxygen Delivery Method Room Air Oxygen Delivery Method Room Air Narrative Exam Narrative: General thin elderly woman alert oriented no acute distress Abdomen soft nontender nondistended Assessment & Plan Assessment and plan (1) Personal history of colonic polyps: Status: Acute Assessment & Plan narrative: The patient requires colorectal screening and colonoscopy is recommended. Technical details were discussed. Risks, benefits, alternatives explained. Ri sks including but not limited to myocardial infarction, aspiration, bleeding, pain, missed lesion, incomplete examination, need for further radiographic studies, colonic perforation, and need for major abdominal surgery were discussed. All questions were answered to their satisfaction, and they are in agreement with this plan.
[2023-09-04 08:50] VITALS: BP 124/63; PULSE 62; RESP 18; TEMP 36.2; O2SAT 96
--- NOTE | 2023-09-04 08:54 | PM.OP.COLON ---
Operative Date/Time/Diagnoses Date of procedure: 09/04/23 Time of procedure: 08:54 Pre-op diagnosis: Personal history of colonic polyps Post-op diagnosis: same Procedure & Clinicians Study performed: Colonoscopy Same procedure as scheduled: Yes Indications: Colorectal screening. Surgeon: Jalen Barriga Procedure Notes Procedure in detail: The history and physical was performed/updated and the patient is ASA class is 2. The procedure was discussed in detail with the patient. Potential risks complications including infection, bleeding, missed diagnosis, perforation, need for surgery, and were explained. Their questions were answered and informed consent was obtained. Patient was brought to the procedure room and placed standard monitoring equipment. The patient's vital signs were monitored continuously throughout the entire procedure. Prior to starting time-out was performed. The patient was placed in the left lateral recumbent position. Procedural sedation was administered by anesthesia. Examination began with a thorough inspection of the perianal area there was no evidence of fissures, fistulae, external hemorrhoids or cutaneous malignancy. The colonoscopy scope was then placed into the anal canal and was advanced to the cecum, which was identified by the ileocecal valve, the appendiceal orifice and the confluence of the taenia. The scope was then slowly withdrawn examining colon thoroughly in all directions, irrigating it of any residual stool. No polyps, no masses or inflammation. The patient tolerated the procedure well. They will be discharged once criteria are met. The prep was of good/excellent quality. The withdrawl time was 7 minutes. Specimen(s): none sent Impression: Normal colonoscopy Post-procedure Plan for aftercare: No further colonoscopy necessary unless symptomatic Disposition: same day surgery
[2023-09-04 08:55] VITALS: BP 139/61; PULSE 65; RESP 17; O2SAT 98
[2023-09-04 09:01] VITALS: BP 146/59; PULSE 64; RESP 14; TEMP 36.3; O2SAT 99
== END 2023-09-04 09:23 | disposition home or self-care (01) ==
PROVIDERS: PCP Nurse Practitioner; Referring Provider Surgery; Visit Provider Surgery
PROC: 0DJD8ZZ Inspection of Lower Intestinal Tract, Via Natural or Artificial Opening Endoscopic (ICD-10-PCS; CPT 45378; principal; 2023-09-04 08:15)
DX: Z12.11 Encounter for screening for malignant neoplasm of colon (principal); Z86.010 Personal history of colon polyps
CPT/HCPCS: G0105